=== PATIENT | female | born 1970 | race Caucasian/White ===

== ENCOUNTER → 2024-05-07 | Outpatient (CLI) | payer OTHER, SELFPAY ==
[2024-05-07 15:39] LABS: Coccid Serology, CF (UCD)* See Sep Rpt
[2024-05-07 16:12] LABS: Basophils # (Auto) 0.1 Thou/mm3 (0.0-0.2); Basophils % (Auto) 1 % (0-2.5); Eosinophils # (Auto) 0.2 Thou/mm3 (0.0-0.5); Eosinophils % (Auto) 2 % (0-10); Hemoglobin 13.3 g/dL (12.0-16.0); Immature Granulocytes % (Auto) 1 % (0-0); Immature Granulocytes Auto 0.05 Thou/mm3 (0.00-0.00); Lymphocytes # (Auto) 3.1 Thou/mm3 (1.0-4.8); Lymphocytes % (Auto) 44 % (10-50); Mean Corpuscular HGB Conc 34.1 g/dl (31.0-37.0); Mean Corpuscular Hemoglobin 30.9 pg (25.0-35.0); Mean Corpuscular Volume 91 fL (80-100); Monocytes # (Auto) 0.5 Thou/mm3 (0.0-0.8); Monocytes % (Auto) 7 % (0-12); Neutrophils # (Auto) 3.2 Thou/mm3 (1.8-7.7); Neutrophils % (Auto) 46 % (37-80); Nucleated Red Blood Cell % 0 /100 WBC (0); Platelet Count 243 Thou/mm3 (140-440); RDW Standard Deviation 41.8 fL (36.4-46.3); Red Blood Count 4.31 Miln/mm3 (4.00-5.20)
[2024-05-07 16:23] LABS: Creatinine MALB Rnd Ur 98 mg/dL (30-125); Microalbumin Creat Ratio 6 mg/gCrea (<30); Microalbumin, Random Urine 6 mg/L (0-300)
[2024-05-07 16:26] LABS: Alanine Aminotransferase 13 U/L (10-49); Albumin, Serum 4.2 gm/dL (3.5-5.0); Albumin/Globulin Ratio 1.8 (1.2-2.2); Alkaline Phosphatase 73 U/L (46-116); Anion Gap 4 (7-16); Aspartate Amino Transferase 17 U/L (0-34); BUN/Creatinine Ratio 14 Ratio (12-20); Bilirubin,Total 0.4 mg/dL (0.3-1.2); Blood Urea Nitrogen 14 mg/dL (9-23); Calcium 11.6 mg/dL (8.3-10.6); Calcium (Corrected) 11.6 mg/dL (8.5-10.1); Carbon Dioxide 26.2 mMol/L (20.0-31.0); Chloride 110 mMol/L (98-107); Free T4 (Free Thyroxine) 1.08 ng/dL (0.89-1.76); Globulin 2.4 gm/dL (2.3-3.5); Glucose 93 mg/dL (74-106); Osmolality,Calculated 279 (275-295); Potassium 3.8 mMol/L (3.4-5.1); Sodium 140 mMol/L (136-145); Thyroid Stimulating Hormone 1.55 uIU/mL (0.55-4.78); Total Protein 6.6 gm/dL (5.7-8.2); eGFR > 60 See Note
== END | disposition home or self-care (01) ==
LOC: COPL 15:06
PROVIDERS: PCP Family Medicine; Referring Provider Family Medicine; Visit Provider Family Medicine
DX: E11.9 Type 2 diabetes mellitus without complications (principal); R03.0 Elevated blood-pressure reading, without diagnosis of hypertension; B38.0 Acute pulmonary coccidioidomycosis
CPT/HCPCS: 36415; 80053; 82043; 82570; 84439; 84443; 85025; 86171

== ENCOUNTER 2024-07-14 08:20 | Day surgery (SDC) | payer OTHER, SELFPAY ==
[2024-07-13 14:17] VITALS: BMI 39.6
[2024-07-14] VITALS (13 sets, daily range): BP systolic 76–127; BP diastolic 56–97; PULSE 64–79; RESP 12–21; TEMP 36.6–36.7; O2SAT 92–98; BMI 38.9
[2024-07-14] MEDS: fentaNYL CIT INJ 50 mCg/ML AMP 2ML (ASD USE ONLY) IV (10:00)
[2024-07-14] MEDS: MEPERIDINE INJ 25 MG/ML VIAL (ASD USE ONLY) IV (10:00)
[2024-07-14] MEDS: DiphenhydrAMINE INJ 50 MG/ML VIAL 25 MG IV (10:00)
[2024-07-14] MEDS: MIDAZOLAM INJ 1 MG/ML VIAL 2 ML (ASD USE ONLY) 2 MG IV (10:06)
[2024-07-14] MEDS: ONDANSETRON INJ 2 MG/ML INJ 2 ML 4 MG IV (10:48)
--- NOTE | 2024-07-14 10:48 | SUR.PHASEII ---
PT HARD TO WEAN OFF O2, BP DROPS, NOTIFIED AND RECEIVED ORDER TO [facility] WITH NS 500ML.
[2024-07-14] MEDS: SODIUM CHLORIDE 0.9% 500 ML 500 ML 999 ML IV (10:49)
--- NOTE | 2024-07-14 10:53 | SUR.PHASEII ---
PT MORE AWAKE TALKING BUT DRIFTED BACK TO SLEEP STILL REQUIRED O2 SUPPLEMENT TO KEEP ABOVE 92%. NO ACUTE DISTRESS NOTED.
== END 2024-07-14 11:38 | disposition home or self-care (01) ==
PROVIDERS: PCP Family Medicine; Referring Provider Specialist; Visit Provider Specialist
PROC: 0DBE8ZX Excision of Large Intestine, Via Natural or Artificial Opening Endoscopic, Diagnostic (ICD-10-PCS; CPT 45380; principal; 2024-07-14 09:00)
DX: Z12.11 Encounter for screening for malignant neoplasm of colon (principal); K64.9 Unspecified hemorrhoids; K57.30 Diverticulosis of large intestine without perforation or abscess without bleeding
CPT/HCPCS: G0121; J1200; J2175; J2250; J2405; J3010; J7040

== ENCOUNTER → 2024-08-30 | Outpatient (CLI) | payer OTHER, SELFPAY ==
--- NOTE | 2024-08-30 11:40 | XR_ITS ---
Examination: Screening digital mammography, bilateral Computer aided detection 3-D breast Tomosynthesis, bilateral Date and time of exam: 08/30/2024, 11:45 AM Comparisons: 07/30/2023 Indications: Screening Technique: Nonmagnified MLO, CC views of the breasts to been obtained, reconstructed from 3-D Tomosynthesis images. R2 computer aided detection program utilized for evaluation of suspicious masses and/or abnormal calcifications. 3-D Tomosynthesis images obtained. Technologist: Findings: There are scattered areas of fibroglandular density. No evidence of abnormal masses or suspicious calcifications. Impression: BI-RADS category 1: Negative findings (within normal) Recommend 1 year follow-up mammogram
== END | disposition home or self-care (01) ==
PROVIDERS: PCP Family Medicine; Referring Provider Family Medicine; Visit Provider Family Medicine
DX: Z12.31 Encounter for screening mammogram for malignant neoplasm of breast (principal); R92.313 Mammographic fatty tissue density, bilateral breasts
CPT/HCPCS: 77063; 77067

== ENCOUNTER → 2024-10-01 | Outpatient (CLI) | payer OTHER, SELFPAY ==
--- NOTE | 2024-10-01 13:49 | XR_ITS ---
Examination: PA lateral chest 2 views TECHNIQUE: Upright PA lateral chest 2 views Exam date 9: September 23, 2024 1440 hours Comparison November 15 Indications: Shortness of breath this week FINDINGS: Normal heart size. Lungs are clear. The osseous structures are intact IMPRESSION: No active disease
[2024-10-01 15:32] LABS: Basophils # (Auto) 0.1 Thou/mm3 (0.0-0.2); Basophils % (Auto) 1 % (0-2.5); Eosinophils # (Auto) 0.2 Thou/mm3 (0.0-0.5); Eosinophils % (Auto) 2 % (0-10); Hematocrit 36.2 % (36.0-46.0); Immature Granulocytes % (Auto) 3 % (0-0); Immature Granulocytes Auto 0.29 Thou/mm3 (0.00-0.00); Lymphocytes # (Auto) 3.1 Thou/mm3 (1.0-4.8); Lymphocytes % (Auto) 35 % (10-50); Mean Corpuscular HGB Conc 33.1 g/dl (31.0-37.0); Mean Corpuscular Hemoglobin 28.6 pg (25.0-35.0); Mean Corpuscular Volume 86 fL (80-100); Monocytes # (Auto) 0.5 Thou/mm3 (0.0-0.8); Monocytes % (Auto) 6 % (0-12); Neutrophils # (Auto) 4.6 Thou/mm3 (1.8-7.7); Neutrophils % (Auto) 53 % (37-80); Nucleated Red Blood Cell % 0 /100 WBC (0); Platelet Count 381 Thou/mm3 (140-440); RDW Standard Deviation 44.4 fL (36.4-46.3); Red Blood Count 4.19 Miln/mm3 (4.00-5.20); White Blood Count 8.7 Thou/mm3 (3.6-11.0)
[2024-10-01 15:45] LABS: Glucose Estimated Average 117 mg/dL (80-131); Hemoglobin A1C 5.7 % Hgb (4.8-6.0)
[2024-10-01 15:51] LABS: Alanine Aminotransferase 35 U/L (10-49); Albumin, Serum 3.8 gm/dL (3.5-5.0); Albumin/Globulin Ratio 1.4 (1.2-2.2); Alkaline Phosphatase 108 U/L (46-116); Anion Gap 7 (7-16); Aspartate Amino Transferase 28 U/L (0-34); BUN/Creatinine Ratio 17 Ratio (12-20); Bilirubin,Total 0.3 mg/dL (0.3-1.2); Blood Urea Nitrogen 19 mg/dL (9-23); Calcium 11.2 mg/dL (8.3-10.6); Calcium (Corrected) 11.4 mg/dL (8.5-10.1); Carbon Dioxide 25.3 mMol/L (20.0-31.0); Chloride 109 mMol/L (98-107); Cholesterol 112 mg/dL (132-200); Creatinine (Component) 1.1 mg/dL (0.6-1.3); Globulin 2.7 gm/dL (2.3-3.5); Glucose 104 mg/dL (74-106); HDL Cholesterol 28 mg/dL (40-60); LDL Cholesterol,Calculated 41 mg/dL (0-130); Osmolality,Calculated 283 (275-295); Potassium 4.2 mMol/L (3.4-5.1); Sodium 141 mMol/L (136-145); Total Protein 6.5 gm/dL (5.7-8.2); Triglycerides 214 mg/dL (30-150); Uric Acid 7.3 mg/dL (3.1-7.8); eGFR 59 See Note
[2024-10-01 16:46] LABS: Collection Type, Urine Clean Catch
[2024-10-01 17:43] LABS: Creatinine MALB Rnd Ur 44 mg/dL (30-125); Microalbumin Creat Ratio 18 mg/gCrea (<30); Microalbumin, Random Urine 8 mg/L (0-300)
[2024-10-01 17:44] LABS: Bacteria,Urine Rare; Bilirubin,Urine Negative (Negative); Blood,Urine Negative (Negative); Clarity,Urine Clear (Clear/Hazy); Color,Urine Lt-Yellow (Lt Yel-Yel); Glucose, Urine Negative (Negative); Ketones,Urine Negative (Negative); Leukocyte Esterase,Urine Positive (Negative); Nitrite,Urine Negative (Negative); PH,Urine 6.5 (5.0-7.0); Protein,Urine Negative (Neg - Trace); RBC,Urine 4 /hpf (0-3); Specific Gravity,Urine 1.009 (1.001-1.035); Squamous Epithelial Cell,Urine < 1 /hpf (0-5); Urobilinogen,Urine Negative mg/dL (0.0-1.0); WBC,Urine 81 /hpf (0-5)
== END | disposition home or self-care (01) ==
PROVIDERS: PCP Family Medicine; Referring Provider Internal Medicine Infectious Disease; Visit Provider Family Medicine
DX: Z00.00 Encounter for general adult medical examination without abnormal findings (principal); B38.0 Acute pulmonary coccidioidomycosis; E11.40 Type 2 diabetes mellitus with diabetic neuropathy, unspecified; E78.2 Mixed hyperlipidemia; E83.52 Hypercalcemia
CPT/HCPCS: 36415; 71046; 80053; 80061; 81001; 82043; 82570; 83036; 84550; 85025

== ENCOUNTER 2024-10-09 20:22 | Inpatient (IN) | payer OTHER, MEDICARE, SELFPAY ==
[2024-10-09 20:31] VITALS: BP 100/62; PULSE 89; RESP 20; TEMP 36.8; O2SAT 95
--- NOTE | 2024-10-09 20:57 | PD.EDNEURO ---
Neuro Symptoms Deficit-RME/HPI General Chief Complaint: Altered Mental Status Stated Complaint: I think I might be having a Stroke Time Seen by Provider: 10/09/24 20:57 Arrival date/time: 10/09/24 20:22 RME / HPI RME / HPI Narrative: This section includes all my notes and documentations, including HPI, PE, and ED course. Mitesh Eddy MD HPI: 54-year-old female here to be evaluated with possible stroke. Mom is present. Around 7 PM, about 2 hours ago, mom and patient started noticing possible strokelike symptoms. Including slurred speech, unsteadiness, and confusion. No visual impairment. No obvious loss of power in the arms or legs. No obvious numbness or tingling. No other complaints. ROS: All negative except as documented in HPI. Physical Exam: General: Patient is lethargic. Eyes: Conjunctivae and lids clear. EOMI. PERRL. ENT: No nasal congestion. Pharynx normal. Tympanic membrane normal bilaterally. Neck: Supple. No carotid bruit. No JVD. Heart: RRR. Lungs: No respiratory distress. Good air movement. No rhonchi, wheezing, rales. Abdomen: Soft and nontender. Normal bowel sounds. No distension. No rebound or guarding. Back: No CVA tenderness. Legs: No clubbing, cyanosis, edema. Skin: Warm and dry. Neuro: Oriented X 1. Cranial Nerves II-XII grossly intact. No peripheral motor deficits. I reviewed all diagnostic test results. My interpretation of the EKG is sinus rhythm with no acute ST?T changes. My review of the head CT report is no acute findings. My review of the head/neck CTA report is no acute findings. Blood tests and urine tests remarkable for MARLYN, hypercalcemia, elevated LFT, and UTI. At this point, diagnoses include strokelike symptoms, MARLYN, hypercalcemia, UTI, and elevated LFT. Treatment here from me included IV fluid and Rocephin. Patient remained stable. Our telehealth neurologist recommended admission for further care. I discussed the case with our hospitalist. About the presentation and exam and diagnostics and treatments here. And need of further care in the hospital. Will accept the patient. Mitesh Eddy MD Related Data Home Medications ?Medication ?Instructions ?Recorded ?Confirmed baclofen 10 mg tablet 20 mg PO TID 11/16/23 10/09/24 Held on 07/14/24. Instructions: Resume on 07/15/24. docusate sodium 100 mg capsule 100 mg PO BID 11/16/23 10/09/24 famotidine 20 mg tablet 20 mg PO BID 11/16/23 10/09/24 fluticasone propionate 50 1 spray intranasal BID 11/16/23 10/09/24 mcg/actuation nasal spray,suspension linaclotide 290 mcg capsule 290 mcg PO QDAY 11/16/23 10/09/24 (Linzess) pregabalin 150 mg capsule 150 mg PO TID 11/16/23 10/09/24 fluconazole 200 mg tablet 200 mg PO BID 11/17/23 10/09/24 albuterol sulfate 90 mcg/actuation 1 inh inhalation BID PRN Wheezing 07/13/24 10/09/24 aerosol inhaler aripiprazole 15 mg tablet 15 mg PO QDAY 07/13/24 10/09/24 cetirizine 10 mg tablet 10 mg PO QDAY 07/13/24 10/09/24 desvenlafaxine succinate 100 mg 50 mg PO DAILY 07/13/24 10/09/24 tablet,extended release 24 hr finasteride 1 mg tablet 1 mg PO QDAY 07/13/24 10/09/24 montelukast 10 mg tablet 10 mg PO QDAY 07/13/24 10/09/24 rosuvastatin 20 mg tablet 20 mg PO DAILY 07/13/24 10/09/24 trazodone 150 mg tablet 300 mg PO QDAY 07/13/24 10/09/24 Held on 07/14/24. Instructions: Resume on 07/15/24. baclofen 20 mg tablet 20 mg PO TID 10/09/24 10/09/24 tirzepatide 2.5 mg/0.5 mL 2.5 mg subcut QWEEK 10/09/24 10/09/24 subcutaneous pen injector (Prema) Allergies Allergy/AdvReac Type Severity Reaction Status Date / Time erythromycin base Allergy Severe Swelling Verified 07/14/24 08:34 of Lip/Tongue/Throat Course Quality Measures none Orders Category Date Time Status Bedside Blood Glucose NOW Care 10/09/24 20:58 Active COVID-19 Screening Questionnaire NOW Care 10/10/24 00:58 Active Pelt Dropper NOW Care 10/09/24 20:58 Active Continuous Pulse Oximetry NOW Care 10/09/24 20:58 Completed Decision to Admit X1 Care 10/10/24 00:58 Active EKG (ED ONLY) *Do not use* NOW Care 10/09/24 20:58 Completed In and Out Catheter NEEDED Care 10/09/24 20:58 Active Insert IV NOW Care 10/09/24 20:58 Active MRI Screening NOW Care 10/09/24 22:15 Active NIH Stroke Scale now Care 10/09/24 20:58 Active NPO NOW Care 10/09/24 20:58 Active Nurse Swallow Screen x1 Care 10/09/24 20:58 Active Consult to Neurology / Tele-Neurology Routine Cons 10/09/24 20:[address] angio stroke protocol Stat Exams 10/09/24 20:[address] stroke protocol Stat Exams 10/09/24 20:58 Completed EKG (ED Only) Stat Exams 10/09/24 20:58 Draft MR head/brain wo con Urgent Exams 10/09/24 Ordered Alcohol, Blood Medical Stat Lab 10/09/24 22:15 Completed Ammonia Stat Lab 10/10/24 01:06 Ordered Arterial Blood Gas Stat Lab 10/09/24 22:26 Completed B-Type Natriuretic Peptide Stat Lab 10/09/24 22:15 Completed CBC Stat Lab 10/09/24 22:15 Completed Comprehensive Metabolic Panel Stat Lab 10/09/24 22:15 Completed Drug Screen,Urine Stat Lab 10/09/24 23:31 Completed Magnesium Stat Lab 10/09/24 22:15 Completed Partial Thromboplastin Time Stat Lab 10/09/24 22:54 Completed Prothrombin Time with INR Stat Lab 10/09/24 22:54 Completed TSH [Thyroid Stimulating Hormone] Stat Lab 10/09/24 22:15 Completed Troponin I Stat Lab 10/09/24 22:15 Completed Urinalysis Stat Lab 10/09/24 23:31 Completed Urine Culture Stat Lab 10/09/24 23:31 Received Clopidogrel [Plavix] Med 10/09/24 22:14 Discontinued 300 mg PO X1 ONE Dextrose 5%-0.45% Ns [D5-1/2Ns] 500 ml Med 10/09/24 22:22 Active IV 125 mls/hr Labetalol IV [Trandate IV] Med 10/09/24 20:58 Active 10 mg IV Q15M PRN Meclizine HCl [Antivert] Med 10/09/24 22:14 Discontinued 25 mg PO X1 ONE Ondansetron Inj [Zofran Inj] Med 10/09/24 20:58 Active 4 mg IV Q4HR PRN Ondansetron Inj [Zofran Inj] Med 10/09/24 22:14 Discontinued 4 mg IV X1 ONE Sodium Chloride 0.9% 1000 ml [Ns] 1,000 ml Med 10/09/24 21:00 Discontinued IV Q10H cefTRIAXone [Rocephin] 1,000 mg Med 10/10/24 01:05 Ordered SODIUM CHLORIDE 0.9% (Popper) [Ns 0.9% (P)] 50 ml IV X1 Oxygen Delivery NOW RT 10/09/24 20:58 Active Vital Signs Vital signs: Vital Signs Temperature 98.3 F 10/09/24 20:31 Pulse Rate 89 10/09/24 20:31 Respiratory Rate 20 10/09/24 20:31 Blood Pressure 100/62 10/09/24 20:31 Pulse Oximetry (%) 95 10/09/24 20:31 Oxygen Delivery Method Room Air 10/09/24 20:31 Neuro Symptoms / Deficit Patient data External records reviewed:: [facility] previous records Clinical information provided by:: patient and parent Social determinants that could affect healthcare access:: other (specify) (Chronic pain) Patient has the following chronic illnesses:: chronic pain, migraine headaches, L shoulder replacement surgery How is presenting disease/condition affected by chronic disease/condition?: exacerbated by Evaluation data The following diagnostics were reviewed and interpreted by me:: lab results, radiology exam(s) and EKG tracing(s) Lab and/or radiology exams considered but not ordered:: None Interpretation Summary: strokelike symptoms, MARLYN, hypercalcemia, UTI, and elevated LFT. Medications / Prescriptions Medications or Prescriptions considered but not ordered:: None Medication administrations:: Medication Administration History Dextrose/Sodium Chloride (D5-1/2ns) 500 mls @ 125 mls/hr IV .Q4H STA Stop: 10/10/24 02:21 Last Admin: 10/09/24 23:08 Dose: 125 mls/hr Documented By: DIONE Ceftriaxone Sodium 1,000 mg/ (Sodium Chloride) 50 mls @ 100 mls/hr IV X1 ONE Stop: 10/10/24 01:34 Labetalol HCl (Labetalol Inj 5 Mg/Ml Vial 20 Ml) 10 mg IV Q15M PRN PRN Reason: HYPER Ondansetron HCl (Ondansetron Inj 2 Mg/Ml Inj 2 Ml) 4 mg IV Q4HR PRN PRN Reason: NAUSEA OR VOMITING Stop: 11/08/24 20:57 Discontinued Medications Clopidogrel Bisulfate (Clopidogrel Bisulfate 75 Mg Tablet) 300 mg PO X1 ONE Stop: 10/09/24 22:15 Last Admin: 10/09/24 22:59 Dose: Not Given Documented By: DIONE Non-Admin Reason: NPO Sodium Chloride (Ns) 1,000 mls @ 100 mls/hr IV Q10H FLOR Stop: 11/08/24 20:59 Last Admin: 10/09/24 23:29 Dose: Not Given Documented By: DIONE Non-Admin Reason: Discontinued Meclizine HCl (Meclizine Hcl 25 Mg Tablet) 25 mg PO X1 ONE Stop: 10/09/24 22:15 Last Admin: 10/09/24 23:00 Dose: Not Given Documented By: DIONE Non-Admin Reason: NPO Ondansetron HCl (Ondansetron Inj 2 Mg/Ml Inj 2 Ml) 4 mg IV X1 ONE; Protocol Stop: 10/09/24 22:15 Last Admin: 10/09/24 23:06 Dose: 4 mg Documented By: DIONE From nd, patient received IV fluid and Rocephin Consultations Consultation(s) initiated? (list below): Yes Consultation #1 (Physician, Specialty, Details): Our telehealth neurology recommended admission for further care. Diagnosis Neuro Differential Diagnosis: convulsions, delirium, subarachnoid hemorrhage, cerebrovascular accident, multiple sclerosis and transient cerebral ischemia Most likely diagnosis given after review of the tests above:: Metabolic encephalopathy, sepsis, Admission Indicated Admission indicated?: indicated Explain why admission is indicated or not indicated:: strokelike symptoms, MARLYN, hypercalcemia, UTI, and elevated LFT. Admission Request Was there a request for admission?: Yes Admission Attestation Admission request attestation: Discussed case with Hospitalist service regarding admission. Discussed patients ED course, exam findings, labs, and radiology results. The Hospitalist [agrees] to accept the patient for admission. Disposition Plan Disposition Plan: Admit Critical Care Time Critical Care Time Critical Care Time: Yes Total Critical Care Time (min.): 36 Attestation: Due to a high probability of clinically significant, life threatening deterioration, the patient required my highest level of preparedness to intervene emergently and I personally spent this critical care time directly and personally managing the patient. This critical care time included obtaining a history; examining the patient; ordering and review of studies; arranging urgent treatment with development of a management plan; evaluation of patient's response to treatment; frequent reassessment; and discussions with family and other providers. It was exclusive of separately billable procedures and treating other patients and teaching time. Mitesh Eddy MD Discharge Plan Plan Patient Disposition: Admit Acute Care w/in Hospital Prescriptions/Referrals Prescriptions/Med Rec: No Action cetirizine 10 mg Tablet 10 mg PO QDAY trazodone 150 mg Tablet 300 mg PO QDAY montelukast 10 mg Tablet 10 mg PO QDAY albuterol sulfate 90 mcg/actuation HFA aerosol inhaler 1 inh INHALATION BID PRN (Reason: Wheezing) Patient Comments: INHALE 1 TO 2 PUFFS BY MOUTH EVERY 4 TO 6 HOURS NEEDED FOR PERSISTENT COUGH OR SHORTNESS OF BREATH OR WHEEZING finasteride 1 mg Tablet 1 mg PO QDAY aripiprazole 15 mg tablet 15 mg PO QDAY rosuvastatin 20 mg tablet 20 mg PO DAILY desvenlafaxine succinate 100 mg tablet extended release 24 hr 50 mg PO DAILY famotidine 20 mg tablet 20 mg PO BID Patient Comments: take 1 tablet by mouth twice a day baclofen 10 mg Tablet 20 mg PO TID docusate sodium 100 mg capsule 100 mg PO BID Patient Comments: take 1 capsule by mouth twice a day fluticasone propionate 50 mcg/actuation spray,suspension 1 spray INTRANASAL BID Patient Comments: USE 1 SPRAY IN EACH NOSTRIL 1-2 TIMES PER DAY FOR PERSISTENT ALLERGIES pregabalin 150 mg Capsule 150 mg PO TID Linzess 290 mcg capsule 290 mcg PO QDAY fluconazole 200 mg tablet 200 mg PO BID baclofen 20 mg tablet 20 mg PO TID Mounjaro 2.5 mg/0.5 mL pen injector 2.5 mg SUBCUT QWEEK Patient Comments: INJECT 2.5 MG UNDER THE SKIN EVERY WEEK FOR 4 WEEKS Referrals: Nba Heredia MD [Primary Care Provider] - In 1 week Problem List Clinical Impression: Stroke-like symptoms, UTI (urinary tract infection), Hypercalcemia, LFT elevation, MARLYN (acute kidney injury) Patient/Caregiver Discharge Instructions Print Language: Gabonese Stand Alone Forms: Ratna Award Info., Patient Portal Info Letter
--- NOTE | 2024-10-09 20:58 | EKG_ITS ---
[facility] Test Date: 2024-10-09 Pat Name: VITO US Department: Room: - Gender: Female Gm Video: : 1970 Requested By: Mitesh Razo Order Number: [id number] Reading MD: Mitesh Razo Measurements Intervals [place] Rate: 84 P: 48 MS: 151 QRS: 16 QRSD: 101 T: 33 QT: 324 QTc: 384 Interpretive Statements SINUS RHYTHM LOW QRS VOLTAGE IN PRECORDIAL LEADS [QRS DEFLECTION < 1.0 mV IN CHEST LEADS] Compared to ECG 11/16/2023 20:52:54 Sinus bradycardia no longer present Sinus arrhythmia no longer present Intraventricular conduction delay no longer present T-wave abnormality no longer present /store/S0/[id number]/ecg/[id number].pdf
--- NOTE | 2024-10-09 20:58 | XR_ITS ---
Examination: CTA carotids with intravenous contrast CTA brain, head with intravenous contrast. 2-D sagittal, coronal reconstructions. 3-D reconstructions. Exam date and time: October 09, 2024 2149 hours INDICATIONS: Stroke alert, onset dizziness and slurred speech CTDI: vol (mGy) 11.6 DLP: (mGycm) 444 Technique: Multiple CTA axial brain, head carotid images post intravenous contrast injection 75 cc, [id number]. 2-D sagittal, coronal reconstructions. 3-D reconstructions, 3-D post processing including vascular maximum intensity projection images. Low dose protocols were performed. One or more of the following dose reduction techniques were used; automated exposure control, adjustment of the mA and/or KV according to patient size, use of iterative reconstruction technique. Findings: No significant common carotid carotid bifurcation or internal carotid artery stenoses Codominant vertebral arteries with no critical stenoses Intracranial vertebral arteries and basilar artery posterior cerebral branches fill No large vessel occlusions juxtasellar internal carotid arteries M1 segments middle cerebral arteries middle cerebral artery trifurcation vessels anterior cerebral arteries. IMPRESSION: No significant neck arterial stenoses. No cerebral vessel arterial occlusions or thrombus
--- NOTE | 2024-10-09 20:58 | XR_ITS ---
Examination: CT brain head without contrast. 2-D sagittal coronal reconstructions Date and time of exam:October 09, 2024 at 2125 hours Comparison November 16, 2023 INDICATIONS: Stroke alert, onset focal neurologic deficit, slurred speech dizziness beginning 4:00 PM today CTDI: vol (mGy):70 DLP: (mGycm):1122 Technique: Multiple CT axial sections of the brain have been obtained, 5 mm slice thickness. Contrast has not been administered. 2-D sagittal, coronal reconstructions have been obtained Low dose protocols were performed. One or more of the following dose reduction techniques were used; automated exposure control, adjustment of the mA and/or KV according to patient size, use of iterative reconstruction technique. Findings: No significant ventricular enlargement. Intra-axial or extra-axial hemorrhage density is not seen. No mass effect or midline shift Basal cisterns are not remarkable. Fourth ventricle is midline. Cranial vault intact. Impression: Negative for acute hemorrhage, mass effect or midline shift
[2024-10-09 21:05] VITALS: PULSE 78
--- NOTE | 2024-10-09 21:49 | PC.NURSE ---
for Tele neuro case # [id number]?
[2024-10-09 22:19] VITALS: BMI 45.8
--- NOTE | 2024-10-09 22:23 | PC.NURSE ---
DR. KOROMA NOTIFIED OF FAIL NURSE SWALLOW SCREENING.
[2024-10-09 22:31] LABS: Basophils % (Auto) 0 % (0-2.5); Eosinophils # (Auto) 0.1 Thou/mm3 (0.0-0.5); Eosinophils % (Auto) 1 % (0-10); Hematocrit 30.8 % (36.0-46.0); Hemoglobin 10.2 g/dL (12.0-16.0); Immature Granulocytes % (Auto) 1 % (0-0); Immature Granulocytes Auto 0.07 Thou/mm3 (0.00-0.00); Lymphocytes % (Auto) 12 % (10-50); Mean Corpuscular HGB Conc 33.1 g/dl (31.0-37.0); Mean Corpuscular Hemoglobin 28.7 pg (25.0-35.0); Mean Corpuscular Volume 87 fL (80-100); Monocytes % (Auto) 12 % (0-12); Neutrophils # (Auto) 6.1 Thou/mm3 (1.8-7.7); Neutrophils % (Auto) 74 % (37-80); Nucleated Red Blood Cell % 0 /100 WBC (0); Platelet Count 124 Thou/mm3 (140-440); RDW Standard Deviation 48.4 fL (36.4-46.3); Red Blood Count 3.55 Miln/mm3 (4.00-5.20); White Blood Count 8.3 Thou/mm3 (3.6-11.0)
[2024-10-09 22:33] LABS: Base Excess -4 (-3-3); HCO3 22 mEq/L (20-26); Inspired Oxygen, FIO2 21 %; O2 Saturation 93 % (91-98); PCO2 41 mmHg (32.0-48.0); PO2 64 mmHg (83-108); pH, Arterial 7.34 (7.35-7.45)
[2024-10-09 22:34] LABS: Allen Test Performed/OK; Puncture Site Right Radial
--- NOTE | 2024-10-09 22:35 | PD.TNEURO ---
Tele Neuro Consultation Consultation Date 10/09/24 Most Recent Vital Signs Last Vital Signs Temp 98.3 F 10/09/24 20:31 Pulse 89 10/09/24 20:31 Resp 20 10/09/24 20:31 BP 100/62 10/09/24 20:31 Pulse Ox 95 10/09/24 20:31 O2 Del Method Room Air 10/09/24 20:31 Consultation Narrative [facility] Tele[facility]rology Consult [facility] Patient Name:???Chloe Hunt Date of :???1970 Identification Number:??? Date of Service:???10/09/2024 21:48:43 Diagnosis:?R26.81 - Unsteady gait ?G93.41 - Encephalopathy Metabolic Impression: ?54YOF with a PMHx of chronic pain, migraine headaches, L shoulder replacement surgery, presenting with subacute onset nausea with acute onset unsteadiness. Exam reassuring with unidirectional fatigable nystagmus and no evidence of torsional nystagmus or ataxia, and patient with diffuse weakness likely in the setting of a response to being on a GLP-1 medication with no blood sugar monitoring or history of diabetes. Nonetheless, cannot exclude possibility of a small posterior ischemic process, and would therefore recommend observation admission for MRI brain and metabolic workup. Our recommendations are outlined below. Recommendations: ? Stroke/Telemetry Floor ? Neuro Checks ? Bedside Swallow Eval ? DVT Prophylaxis ? IV Fluids, Normal Saline ? Head of Bed 30 Degrees ? Euglycemia and Avoid Hyperthermia (PRN Acetaminophen) ? Bolus with Clopidogrel 300 mg bolus x1 and initiate dual antiplatelet therapy with Aspirin 81 mg daily and Clopidogrel 75 mg daily ?Recommned migrain cocktai of Compazine 10, Diphenhydramine 25 for headache ?Meclizine PRN for unsteadiness/dizziness w or wo zofran ?MRI Brain wo contrast ?Infectious and metabolic workup per primary team Sign Out: ? Discussed with Emergency Department Provider Advanced Imaging: CTA Head and Neck Completed. LVO:No Patient in not a candidate for CHINYERE Metrics: Last Known Well: 10/09/2024 14:00:00 Dispatch Time: 10/09/2024 21:48:43 Arrival Time: 10/09/2024 20:22:00 Initial Response Time: 10/09/2024 21:50:21Symptoms: Dizziness, unsteadiness, recurrent falls. Initial patient interaction: 10/09/2024 21:53:08 NIHSS Assessment Completed: 10/09/2024 22:02:02Patient is not a candidate for Thrombolytic. Thrombolytic Medical Decision: 10/09/2024 22:02:03Patient was not deemed candidate for Thrombolytic because of following reasons: LKW outside 4.5 hr window. . I personally Reviewed the CT Head and it Showed no blood products or early ischemic changes Primary Provider Notified of Diagnostic Impression and Management Plan on: 10/09/2024 22:23:11 History of Present Illness:Patient is a 54 year old Female. Patient was brought by private transportation with symptoms of Dizziness, unsteadiness, recurrent falls. 54YOF with a PMHx of chronic pain, migraine headaches, L shoulder replacement surgery, presenting with subacute onset nausea with acute onset dizziness. Per patient and per mom, who is at bedside, patient was started on Mounjaro for weight loss appx 2 weeks ago, and had been complaining of intermittent nausea and feeling unwell for past several days. Today, mom took a nap and when she woke up, patient informed her that she had fallen a total of five times, with notable unsteadiness n her feet and acute worsening of her nausea. Per mom, patient had a similar eisode in the setting of a medication change in November 2023. Admits to generalized weakness and shakiness with no speech or visual changes. Past Medical History: ?Migraine Headaches ?There is no history of Hypertension ?There is no history of Diabetes Mellitus ?There is no history of Hyperlipidemia ?There is no history of Atrial Fibrillation Medications: No Anticoagulant use? No Antiplatelet use Reviewed EMR for current medications Allergies:? Reviewed Social History: Patient Is: Single Drug Use: No Family History: There is no family history of premature cerebrovascular disease pertinent to this consultation ROS : 14 Points Review of Systems was performed and was negative except mentioned in HPI. Past Surgical History: There Is No Surgical History Contributory To Today?s Visit Examination: BP(100/62),?Pulse(89), 1A: Level of Consciousness - Arouses to minor stimulation?+ 1 1B: Ask Month and Age - Both Questions Right?+ 0 1C: Blink Eyes & Squeeze Hands - Performs Both Tasks?+ 0 2: Test Horizontal Extraocular Movements - Normal?+ 0 3: Test Visual Gold - No Visual Loss?+ 0 4: Test Facial Palsy (Use Grimace if Obtunded) - Normal symmetry?+ 0 5A: Test Left Arm Motor Drift - Drift, but doesn't hit bed?+ 1 5B: Test Right Arm Motor Drift - Drift, but doesn't hit bed?+ 1 6A: Test Left Leg Motor Drift - Drift, but doesn't hit bed?+ 1 6B: Test Right Leg Motor Drift - Drift, but doesn't hit bed?+ 1 7: Test Limb Ataxia (FNF/Heel-Hunt) - No Ataxia?+ 0 8: Test Sensation - Normal; No sensory loss?+ 0 9: Test Language/Aphasia - Normal; No aphasia?+ 0 10: Test Dysarthria - Normal?+ 0 11: Test Extinction/Inattention - No abnormality?+ 0 NIHSS Score:?5 NIHSS Free Text :?+ fatigueable R nystagmus. No ataxia on FTN bilaterally Pre-Morbid Modified [place] Scale:2 Points = Slight disability; unable to carry out all previous activities, but able to look after own affairs without assistance Spoke with :?Dr Eddy This consult was conducted in real time using interactive audio and video technology. Patient was informed of the technology being used for this visit and agreed to proceed. Patient located in hospital and provider located at home/office setting. Patient is being evaluated for possible acute neurologic impairment and high probability of imminent or life-threatening deterioration. I spent total of 25 minutes providing care to this patient, including time for face to face visit via telemedicine, review of medical records, imaging studies and discussion of findings with providers, the patient and/or family. Dr Bill Leary [facility] For Inpatient follow-up with [facility] physician please call [facility] at . As we are not an outpatient service for any post hospital discharge needs please contact the hospital for assistance. If you have any questions for the [facility] physicians or need to reconsult for clinical or diagnostic changes please contact us via [facility] at .
[2024-10-09 22:36] VITALS: BP 120/83; PULSE 79; RESP 18; O2SAT 94
[2024-10-09 22:38] VITALS: PULSE 76; RESP 17; RESP 94
[2024-10-09 22:54] LABS: Alanine Aminotransferase 332 U/L (10-49); Albumin, Serum 3.4 gm/dL (3.5-5.0); Albumin/Globulin Ratio 1.3 (1.2-2.2); Alcohol, Blood Medical < 3.0 mg/dL (0-10.0); Alkaline Phosphatase 136 U/L (46-116); Anion Gap 7 (7-16); Aspartate Amino Transferase 168 U/L (0-34); BUN/Creatinine Ratio 14 Ratio (12-20); Bilirubin,Total 0.7 mg/dL (0.3-1.2); Blood Urea Nitrogen 36 mg/dL (9-23); Calcium 11.9 mg/dL (8.3-10.6); Calcium (Corrected) 12.4 mg/dL (8.5-10.1); Carbon Dioxide 20.9 mMol/L (20.0-31.0); Chloride 105 mMol/L (98-107); Creatinine (Component) 2.6 mg/dL (0.6-1.3); Estimated Creatinine Clearance 28.1 mL/min (>60); Globulin 2.6 gm/dL (2.3-3.5); Glucose 94 mg/dL (74-106); Magnesium 2.2 mg/dL (1.6-2.6); Osmolality,Calculated 274 (275-295); Potassium 4.6 mMol/L (3.4-5.1); Sodium 133 mMol/L (136-145); Thyroid Stimulating Hormone 2.37 uIU/mL (0.55-4.78); Troponin I < 0.002 ng/mL (0.0-0.045); eGFR 21 See Note
[2024-10-09] MEDS: ONDANSETRON INJ 2 MG/ML INJ 2 ML 4 MG IV (23:06)
[2024-10-09] MEDS: DEXTROSE 5%-0.45% NS 500 ML 125 ML IV (23:08)
[2024-10-09 23:18] LABS: INR 1.1 (0.9-1.3); Partial Thromboplastin Time 25.5 Seconds (22.0-36.0); Prothrombin Time 10.9 Seconds (9.0-12.2)
[2024-10-09 23:24] LABS: B-Type Natriuretic Peptide 35 pg/mL (0-100)
[2024-10-09 23:36] LABS: Collection Type, Urine Voided
[2024-10-09 23:51] LABS: Bacteria,Urine 3+; Bilirubin,Urine Negative (Negative); Blood,Urine 1+ (Negative); Clarity,Urine Turbid (Clear/Hazy); Color,Urine Drk-Yellow (Lt Yel-Yel); Glucose, Urine Negative (Negative); Ketones,Urine Negative (Negative); Leukocyte Esterase,Urine Positive (Negative); Nitrite,Urine Positive (Negative); Protein,Urine 2+ (Neg - Trace); RBC,Urine 7 /hpf (0-3); Specific Gravity,Urine 1.018 (1.001-1.035); Squamous Epithelial Cell,Urine 3 /hpf (0-5); Urobilinogen,Urine Negative mg/dL (0.0-1.0); WBC,Urine 124 /hpf (0-5)
[2024-10-09 23:57] LABS: Amphetamine/Methamp Scrn,U Negative (Negative); Barbiturate Screen,Urine Negative (Negative); Benzodiazepines Screen,Urine Negative (Negative); Benzoylecgonine Screen, Ur Negative (Negative); Fentanyl Screen,Urine Negative (Negative); Opiate Screen,Urine Negative (Negative); THC Screen,Urine Negative (Negative)
[2024-10-10] VITALS (9 sets, daily range): BP systolic 97–109; BP diastolic 55–67; PULSE 66–76; RESP 12–96; TEMP 36–36.7; O2SAT 94–99; BMI 43.1
[2024-10-10] MEDS: cefTRIAXone 1,000 MG in SODIUM CHLORIDE 0.9% (Popper) 50 ML 100 MG IV (01:32)
[2024-10-10 01:56] LABS: Ammonia < 10 uMol/L (11-32)
--- NOTE | 2024-10-10 02:02 | PD.RESHP ---
Documentation for date of: 10/10/24 [facility] History of Present Illness Chief complaint: ams, general weakness History of present illness: The patient is a 54-year-old female with previous medical history of chronic back pain, migraine, GI bleed, hyperparathyroidism, valley fever, osteoarthritis status post left shoulder replacement who was brought to the ED due to generalized weakness, nausea, vomiting that started approximately around 7 PM when her mother noticed that she was weak, his speech became slurred, she became confused. Stroke alert was called. Due to mental status, most of the history was taking through conversation with medical personnel, patient's mother and chart review. Mother denies the possibility of medication overdose. ED course: In the ED she was hemodynamically stable, afebrile, saturated well on room air. Labs were remarkable for hemoglobin of 10.2, ABG showed pH of 7.34, PO2 of 64, sodium 133, creatinine 2.6, EGFR 21, corrected calcium 12.4, AST 168, ALT 332. Ammonia levels were less than 10. TSH was 2.37. Urine analysis was positive for WBC count of 124, bacteria 3+. Urine drug screen was negative. Head and neck CTA was negative for acute stroke, fracture, bleeding, large vessel occlusions. Teleneuro was consulted, low suspicion for acute stroke, differential diagnosis could be general weakness due to GLP-1 inhibitors use, recommended admission and MRI. Her mother at the [facility], reports that symptoms started suddenly, also reports that she had similar episodes a few months ago due to increased dose of prescribed medication, does not remember the name. In the ED she received ondansetron, was started on dextrose at 125 mL/h. She was admitted for acute encephalopathy of unknown origin (possible infectious, toxic, metabolic, stroke rule out) Social history: Lives with her mom, on disability due to chronic back pain. Home medications: Docusate, famotidine, fluconazole, pregabalin, baclofen, Linzess, aripiprazole, rosuvastatin, finasteride, cetirizine, montelukast, trazodone, fluticasone nasal spray, albuterol inhaler, desvenlafaxine. Review of Systems Review of Systems ROS Unobtainable: unobtainable due to mental status Past Medical History Past Medical History NEUROLOGIC: Positive Migraine RESPIRATORY: Positive Respiratory Disorders (valley fever) MUSCULOSKELETAL: Positive Musculoskeletal Disorders ENDOCRINE: Positive Endocrine Disorders and Parathyroid Disease PSYCHO/SOCIAL: Positive Depression Exam Vital Signs Temp Pulse Resp BP Pulse Ox O2 Del Method 98.0 F 66 18 97/67 96 Room Air 10/10/24 01:16 10/10/24 01:16 10/10/24 01:16 10/10/24 01:16 10/10/24 01:16 10/10/24 01:16 Narrative Exam Physical Exam General: Sleeping in the bed, arousable to painful stimuli. AOx2 (reports the year is 2023) HEENT: Normocephalic, atraumatic, mucous membranes moist. Heart: Regular rate and rhythm, no murmurs. Lungs: Clear to auscultation with no wheezing or crackles. Abdomen: Soft, nondistended, nontender, positive bowel sounds. ?No guarding or rebound tenderness. Neurologic: Alert and oriented x2, no gross neurological deficit, and patient able to move all 4 extremities. General weakness. Extremities: 1+ edema. Skin: No rash or ecchymoses. Results: Labs 10/09/24 22:15 10/09/24 22:15 Labs: Short CBC 10/09/24 Range/Units 22:15 WBC 8.3 (3.6-11.0) Thou/mm3 Hgb 10.2 L (12.0-16.0) g/dL Hct 30.8 L (36.0-46.0) % Plt Count 124 L D (140-440) Thou/mm3 BMP 10/09/24 22:15 Sodium 133 L Potassium 4.6 Chloride 105 Carbon Dioxide 20.9 BUN 36 H Creatinine 2.6 H Glucose 94 Calcium 11.9 H Cardiac Enzymes 10/09/24 Range/Units 22:15 Troponin I < 0.002 (0.0-0.045) ng/mL Liver Function 10/09/24 Range/Units 22:15 Total Bilirubin 0.7 (0.3-1.2) mg/dL AST 168 H (0-34) U/L ALT 332 H (10-49) U/L Alkaline Phosphatase 136 H (46-116) U/L Albumin 3.4 L (3.5-5.0) gm/dL Urine 10/09/24 Range/Units 23:31 Urine Color Drk-Yellow A (Lt Yel-Yel) Urine Clarity Turbid A (Clear/Hazy) Urine pH 6.0 (5.0-7.0) Ur Specific [place] 1.018 (1.001-1.035) Urine Protein 2+ A (Neg - Trace) Urine Glucose (UA) Negative (Negative) ABG Interpretation ABG results: 10/09/24 22:26 ABG pH 7.34 L ABG pCO2 41 ABG pO2 64 L ABG HCO3 22 ABG O2 Saturation 93 ABG Base Excess -4 L Quality Measures Quality Measures none Medications Home Medications and Allergies Home Medications ?Medication ?Instructions ?Recorded ?Confirmed ?Type baclofen 10 mg tablet 20 mg PO TID 11/16/23 10/09/24 History Held on 07/14/24. Instructions: Resume on 07/15/24. docusate sodium 100 mg capsule 100 mg PO BID 11/16/23 10/09/24 History famotidine 20 mg tablet 20 mg PO BID 11/16/23 10/09/24 History fluticasone propionate 50 1 spray intranasal BID 11/16/23 10/09/24 History mcg/actuation nasal spray,suspension linaclotide 290 mcg capsule 290 mcg PO QDAY 11/16/23 10/09/24 History (Linzess) pregabalin 150 mg capsule 150 mg PO TID 11/16/23 10/09/24 History fluconazole 200 mg tablet 200 mg PO BID 11/17/23 10/09/24 History albuterol sulfate 90 mcg/actuation 1 inh inhalation BID PRN Wheezing 07/13/24 10/09/24 History aerosol inhaler cetirizine 10 mg tablet 10 mg PO QDAY 07/13/24 10/09/24 History desvenlafaxine succinate 100 mg 50 mg PO DAILY 07/13/24 10/09/24 History tablet,extended release 24 hr finasteride 1 mg tablet 1 mg PO QDAY 07/13/24 10/09/24 History montelukast 10 mg tablet 10 mg PO QDAY 07/13/24 10/09/24 History rosuvastatin 20 mg tablet 20 mg PO DAILY 07/13/24 10/09/24 History trazodone 150 mg tablet 300 mg PO QDAY 07/13/24 10/09/24 History Held on 07/14/24. Instructions: Resume on 07/15/24. baclofen 20 mg tablet 20 mg PO TID 10/09/24 10/09/24 History tirzepatide 2.5 mg/0.5 mL 2.5 mg subcut QWEEK 10/09/24 10/09/24 History subcutaneous pen injector (Prema) Allergies Allergy/AdvReac Type Severity Reaction Status Date / Time erythromycin base Allergy Severe Swelling Verified 07/14/24 08:34 of Lip/Tongue/Throat Visit Medications Acetaminophen (Acetaminophen 325 Mg Tablet) 650 mg PO Q6H PRN PRN Reason: Fever >100.3 or pain 1-3 Stop: 11/09/24 01:09 Aspirin (Aspirin Ec 81 Mg Tabec) 81 mg PO QDAY FLOR Stop: 11/09/24 08:59 Clopidogrel Bisulfate (Clopidogrel Bisulfate 75 Mg Tablet) 75 mg PO QDAY FLOR Stop: 11/09/24 08:59 Heparin Sodium (Porcine) (Heparin Sod Inj 5000 Unit/Ml Vial) 5,000 unit SC Q8HR FLOR Stop: 10/24/24 05:59 Dextrose/Sodium Chloride (D5-1/2ns) 500 mls @ 125 mls/hr IV .Q4H STA Stop: 10/10/24 02:21 Last Admin: 10/09/24 23:08 Dose: 125 mls/hr Ceftriaxone Sodium/Dextrose (Rocephin/D5w 1gm Iv Premix) 50 mls @ 100 mls/hr IV QDAY FLOR Stop: 10/17/24 08:59 Labetalol HCl (Labetalol Inj 5 Mg/Ml Vial 20 Ml) 10 mg IV Q15M PRN PRN Reason: HYPER Ondansetron HCl (Ondansetron Inj 2 Mg/Ml Inj 2 Ml) 4 mg IV Q4HR PRN PRN Reason: NAUSEA OR VOMITING Stop: 11/08/24 20:57 Sennosides (Senna Tablet) 1 tab PO QDAY PRN; Protocol PRN Reason: constipation Stop: 11/09/24 01:09 Discontinued Medications Clopidogrel Bisulfate (Clopidogrel Bisulfate 75 Mg Tablet) 300 mg PO X1 ONE Stop: 10/09/24 22:15 Last Admin: 10/09/24 22:59 Dose: Not Given Sodium Chloride (Ns) 1,000 mls @ 100 mls/hr IV Q10H FLOR Stop: 11/08/24 20:59 Last Admin: 10/09/24 23:29 Dose: Not Given Ceftriaxone Sodium 1,000 mg/ (Sodium Chloride) 50 mls @ 100 mls/hr IV X1 ONE Stop: 10/10/24 01:34 Last Admin: 10/10/24 01:32 Dose: 100 mls/hr Meclizine HCl (Meclizine Hcl 25 Mg Tablet) 25 mg PO X1 ONE Stop: 10/09/24 22:15 Last Admin: 10/09/24 23:00 Dose: Not Given Ondansetron HCl (Ondansetron Inj 2 Mg/Ml Inj 2 Ml) 4 mg IV X1 ONE; Protocol Stop: 10/09/24 22:15 Last Admin: 10/09/24 23:06 Dose: 4 mg Assessment & Plan Plan The patient is a 54-year-old female with previous medical history of chronic back pain, migraine, GI bleed, depression, valley fever, osteoarthritis status post left shoulder replacement who was brought to the ED due to generalized weakness, nausea, vomiting that started approximately around 7 PM when her mother noticed that she was weak, his speech became slurred, she became confused. #Acute encephalopathy #Stroke rule out #History of pseudotumor cerebri #History of migraines DDx: Acute stroke versus acute encephalopathy versus GLP-1 side effect Patient's mother reports that approximately at 7 PM she had suddenly started to become weak, her speech became slurred okay. In the ED a stroke alert was called, CT head and CTA of head and neck were negative for acute disease, teleneuro was consulted, low suspicion for acute stroke. 10/10/24: Patient failed swallow screen. TSH level in the normal range. A1c in September 2024 in the normal range. Plan: -Telemetry Floor -Neuro Checks q4hr - Bedside Swallow Eval - Speech therapy eval - Physical therapy eval -DVT Prophylaxis -Head of Bed 30 Degrees - Euglycemia and Avoid Hyperthermia (PRN Acetaminophen) - Bolus with Clopidogrel 300 mg bolus x1 and initiate dual antiplatelet therapy with Aspirin 81 mg daily and Clopidogrel 75 mg daily when patient is able to swallow -MRI Brain wo contrast ? Blood and utine cultures ordered ? Urine drug screen ordered - in-house neuro consult - lipid panel #UTI UA was positive for signs of UTI Plan: ? Ceftriaxone 1 g daily ? Urine cultures ordered #MARLYN Creatinine 2.6, baseline creatinine in September 2024 1.1. Could be due to chronic NSAID intake together with dehydration and infection. Plan: ? NSAIDs on hold for now ? Fluids ? Monitor daily CMP ? I's and O's ? Avoid nephrotoxic agents ? Renally dose medications - ringer's lactate at 75 ml/hr #Chronic back pain Will try to abstain from opioid medications if possible due to altered mental status. Plan: ? Pain control as needed ? Home pregabalin is on hold for now #Hypercalcemia #Hyperparathyroidism According to chart review, patient has a history of hyperparathyroidism. PTH in 2023 106.6. 10/10/24 Corrected Ca 12.4 ALP 136. Plan: - PTH ordered - ringer's lactate at 75 ml/hr - serum protein electrophoresis #Elevated transaminases AST 168, ALT 332. Most likely in the setting of acute infection, possible medication side effect. Plan: - trend CMP #History of depression Plan: ? Desvenlafaxine on hold for now #History of valley fever Patient's mother reports that she has been taking fluconazole for few months. Plan: ? Continue home fluconazole #Morbid obesity A1c in September 2024 5.8 Plan: ? Decreased appetite on hold for now Health maintenance: FEN: NPO until passes swallow screen DVT prophylaxis: heparin sc GI prophylaxis: none Dispo: telemetry CODE STATUS: Full code Plan of care discussed with attending Dr. Dalton. Ange Hernandez MD, PGY 1. Attending Provider Attestation/Addendum Patient was seen and examined in ED bed #3 with medical record specialist. Patient was brought in for altered mentation. According to her mom she has been weak and had falls at home that is what prompted her to call EMS.. The patient is on disability for back pain. She had bad shoulder as well on the left side and supposed to have a shoulder surgery. She is taking Advil. She takes Diflucan for valley fever. Her PCP is Dr. Fannie Heredia. Her mom mentioned that she noted her being sleepy and hard to arouse sometimes. Her mom said that she does not have sleep apnea. The patient awakens with vigorous stimuli but easily goes back to sleep. She was evaluated by teleneurology who recommended MRI. Initial CT scan of the brain CT angio head and neck were unremarkable. The patient has abnormal creatinine, hypercalcemia, proteinuria and cytopenia. Further workup for myeloma eg. SPEP. her mom said that she was supposed to see infectious disease doctor for her valley fever
[2024-10-10] MEDS: RINGERS LACTATED 1000 ML 1,000 ML 75 ML IV (04:00)
[2024-10-10] MEDS: HEPARIN SOD INJ 5000 UNIT/ML VIAL SC ×3 (05:02→21:12)
[2024-10-10 07:06] LABS: Alanine Aminotransferase 284 U/L (10-49); Albumin, Serum 3.3 gm/dL (3.5-5.0); Albumin/Globulin Ratio 1.3 (1.2-2.2); Alkaline Phosphatase 134 U/L (46-116); Anion Gap 8 (7-16); Aspartate Amino Transferase 132 U/L (0-34); BUN/Creatinine Ratio 12 Ratio (12-20); Bilirubin,Total 0.5 mg/dL (0.3-1.2); Blood Urea Nitrogen 34 mg/dL (9-23); Calcium 11.9 mg/dL (8.3-10.6); Calcium (Corrected) 12.5 mg/dL (8.5-10.1); Carbon Dioxide 18.3 mMol/L (20.0-31.0); Chloride 108 mMol/L (98-107); Cholesterol 80 mg/dL (132-200); Creatinine (Component) 2.8 mg/dL (0.6-1.3); Estimated Creatinine Clearance 25.1 mL/min (>60); Free T4 (Free Thyroxine) 1.13 ng/dL (0.89-1.76); Globulin 2.5 gm/dL (2.3-3.5); Glucose 95 mg/dL (74-106); HDL Cholesterol < 10 mg/dL (40-60); LDL Cholesterol,Calculated 12 mg/dL (0-130); Magnesium 2.2 mg/dL (1.6-2.6); Osmolality,Calculated 275 (275-295); Phosphorous 3.5 mg/dL (2.4-5.1); Potassium 4.2 mMol/L (3.4-5.1); Sodium 134 mMol/L (136-145); Thyroid Stimulating Hormone 2.48 uIU/mL (0.55-4.78); Total Protein 5.8 gm/dL (5.7-8.2); Triglycerides 290 mg/dL (30-150); eGFR 19 See Note
[2024-10-10 08:05] LABS: Basophils % (Auto) 1 % (0-2.5); Eosinophils # (Auto) 0.1 Thou/mm3 (0.0-0.5); Eosinophils % (Auto) 2 % (0-10); Hematocrit 32.1 % (36.0-46.0); Hemoglobin 10.4 g/dL (12.0-16.0); Immature Granulocytes % (Auto) 1 % (0-0); Immature Granulocytes Auto 0.03 Thou/mm3 (0.00-0.00); Lymphocytes # (Auto) 0.6 Thou/mm3 (1.0-4.8); Lymphocytes % (Auto) 10 % (10-50); Mean Corpuscular HGB Conc 32.4 g/dl (31.0-37.0); Mean Corpuscular Hemoglobin 28.4 pg (25.0-35.0); Mean Corpuscular Volume 88 fL (80-100); Monocytes # (Auto) 0.6 Thou/mm3 (0.0-0.8); Monocytes % (Auto) 10 % (0-12); Neutrophils # (Auto) 4.4 Thou/mm3 (1.8-7.7); Neutrophils % (Auto) 77 % (37-80); Nucleated Red Blood Cell % 0 /100 WBC (0); Platelet Count 115 Thou/mm3 (140-440); RDW Standard Deviation 49.6 fL (36.4-46.3); Red Blood Count 3.66 Miln/mm3 (4.00-5.20); White Blood Count 5.7 Thou/mm3 (3.6-11.0)
--- NOTE | 2024-10-10 09:45 | PC.NURSE ---
Malorie speech therapist and I tried to do swallow evaluation. Patient given ice chips she immediately fell asleep. Swallow evalutation not safe at this time. Patient morning medications not given to her patient will remain NPO. Will continue to monitor patient.
--- NOTE | 2024-10-10 09:53 | PCS.ST ---
UTILITY CLERK attempted swallow eval; however, pt unable to stay awake. Pt unsafe to continue with formal swallow evaluation. UTILITY CLERK will attempt again later.
[2024-10-10 10:25] LABS: Base Excess -4 (-3-3); HCO3 23 mEq/L (20-26); Inspired Oxygen, FIO2 21 %; O2 Saturation 96 % (91-98); PCO2 45 mmHg (32.0-48.0); PO2 66 mmHg (83-108); pH, Arterial 7.31 (7.35-7.45)
[2024-10-10 10:26] LABS: Allen Test Performed/OK; Puncture Site Right Radial
--- NOTE | 2024-10-10 13:07 | PC.SS ---
CARD GRADER met with pt at bedside while mom was present, pt asked for mom to answer questions. Pt lives with mom at home and mother is her medical decision maker (Ayn Hunt, .) Pt does not use any medical equipment or is diabetic/on dialysis, and pharmacy of choice is [facility] on [address]. Pt's PCP is Nba Heredia, and does not have a SNF preference.
--- NOTE | 2024-10-10 14:26 | PCS.ST ---
pt unable to stay awake for swallow evaluation. continue with repeat nurse swallow screen if pt becomes more alert. VOCATIONAL AUTO BODY INSTRUCTOR will re-attempt swallow eval tomorrow.
--- NOTE | 2024-10-10 15:25 | ESPR_ITS ---
<Statement entered by Davion Beckham MD - 10/11/24 07:29> Senior Resident Attestation: I supervised/discussed management plan with internet salesperson physician Dr. Wall, and was involved in the care of this patient. I personally saw and examined the patient and discussed the assessment and plan with the entire medicine team, including my attending. I agree with the assessment and plan as documented. Patient's care was discussed with attending physician, Dr. Beverly. Davion Beckham MD PGY-2. Documentation for date of: 10/10/24 Subjective Subjective Interval history: Patient is seen and examined at bedside Admitted overnight. Patient is drowsy, responding to only mild painful stimuli Vitals are stable. On physical examination, severe hair loss noted and appears chronically ill Labs showed WBC 5.7, Hb 10 point platelets 115, sodium 134, chloride 108, bicarb 18.3, BUN 34, creatinine 2.8, corrected calcium 12.5, AST 132, ALT 284 25-hydroxy vitamin D, 1, 25 dihydroxy vitamin D, urine electrolytes, creatinine are ordered Traylor catheter is placed to monitor the urine output. Strict I&O's is ordered Will continue maintenance fluids at 125 mL/h in view of hypercalcemia, MARLYN Exam Vital Signs Temp Pulse Resp BP Pulse Ox O2 Del Method 96.9 F 70 14 103/66 94 L Room Air 10/10/24 12:00 10/10/24 12:00 10/10/24 12:00 10/10/24 12:00 10/10/24 12:00 10/10/24 12:00 Narrative Exam General: Drowsy. Responding to mild painful stimuli HEENT: Normocephalic, atraumatic, mucous membranes moist. Heart: Regular rate and rhythm, no murmurs. Lungs: Clear to auscultation with no wheezing or crackles. Abdomen: Soft, nondistended, nontender, positive bowel sounds. ?No guarding or rebound tenderness. Neurologic: Drowsy. Responding to mild painful stimuli Extremities: No edema. Skin: No rash or ecchymoses. Severe hair loss Objective Labs 10/13/24 04:24 10/13/24 04:24 Labs: Laboratory Results - last 24 hr 10/09/24 10/09/24 10/09/24 22:15 22:26 22:54 WBC 8.3 RBC 3.55 L Hgb 10.2 L Hct 30.8 L MCV 87 MCH 28.7 MCHC 33.1 RDW Std Deviation 48.4 H Plt Count 124 L D Neut % (Auto) 74 Lymph % (Auto) 12 [place] % (Auto) 12 Eos % (Auto) 1 Baso % (Auto) 0 Neut # (Auto) 6.1 Lymph # (Auto) 1.0 [place] # (Auto) 1.0 H Eos # (Auto) 0.1 Baso # (Auto) 0.0 Immature Gran # (Auto) 0.07 H Absolute Nucleated RBC 0.00 Immature Gran % 1 H Nucleated RBC % 0 PT 10.9 INR 1.1 APTT 25.5 Puncture Site Right Radial ABG pH 7.34 L ABG pCO2 41 ABG pO2 64 L ABG HCO3 22 ABG O2 Saturation 93 ABG Base Excess -4 L FiO2 21 Sodium 133 L Potassium 4.6 Chloride 105 Carbon Dioxide 20.9 Anion Gap 7 BUN 36 H Creatinine 2.6 H Estim Creat Clear Calc 28.1 L eGFR 21 L BUN/Creatinine Ratio 14 Glucose 94 Calculated Osmolality 274 L Calcium 11.9 H Corrected Calcium 12.4 H Phosphorus Magnesium 2.2 Total Bilirubin 0.7 AST 168 H ALT 332 H Alkaline Phosphatase 136 H Ammonia Troponin I < 0.002 B-Natriuretic Peptide 35 Total Protein 6.0 Albumin 3.4 L Globulin 2.6 Albumin/Globulin Ratio 1.3 Triglycerides Cholesterol LDL Cholesterol, Calc HDL Cholesterol Cholesterol/HDL Ratio TSH 2.37 Free T4 Ur Collection Type Urine Color Urine Clarity Urine pH Ur Specific [place] Urine Protein Urine Glucose (UA) Urine Ketones Urine Blood Urine Nitrite Urine Bilirubin Urine Urobilinogen (Auto) Ur Leukocyte Esterase Urine RBC Urine WBC Ur Squamous Epith Cells Urine Bacteria Urine Opiates Screen Urine Fentanyl Screen Ur Barbiturates Screen U Amphetamin/Meth Scrn U Benzodiazepines Scrn U Cocaine Metab Screen U Marijuana (THC) Screen Ethyl Alcohol < 3.0 10/09/24 10/10/24 10/10/24 23:31 01:27 04:30 WBC 5.7 RBC 3.66 L Hgb 10.4 L Hct 32.1 L MCV 88 MCH 28.4 MCHC 32.4 RDW Std Deviation 49.6 H Plt Count 115 L Neut % (Auto) 77 Lymph % (Auto) 10 [place] % (Auto) 10 Eos % (Auto) 2 Baso % (Auto) 1 Neut # (Auto) 4.4 Lymph # (Auto) 0.6 L [place] # (Auto) 0.6 Eos # (Auto) 0.1 Baso # (Auto) 0.0 Immature Gran # (Auto) 0.03 H Absolute Nucleated RBC 0.00 Immature Gran % 1 H Nucleated RBC % 0 PT INR APTT Puncture Site ABG pH ABG pCO2 ABG pO2 ABG HCO3 ABG O2 Saturation ABG Base Excess FiO2 Sodium 134 L Potassium 4.2 Chloride 108 H Carbon Dioxide 18.3 L Anion Gap 8 BUN 34 H Creatinine 2.8 H Estim Creat Clear Calc 25.1 L eGFR 19 L BUN/Creatinine Ratio 12 Glucose 95 Calculated Osmolality 275 Calcium 11.9 H Corrected Calcium 12.5 H Phosphorus 3.5 Magnesium 2.2 Total Bilirubin 0.5 AST 132 H ALT 284 H Alkaline Phosphatase 134 H Ammonia < 10 L Troponin I B-Natriuretic Peptide Total Protein 5.8 Albumin 3.3 L Globulin 2.5 Albumin/Globulin Ratio 1.3 Triglycerides 290 H Cholesterol 80 L LDL Cholesterol, Calc 12 HDL Cholesterol < 10 L Cholesterol/HDL Ratio 8.0 H TSH 2.48 Free T4 1.13 Ur Collection Type Voided Urine Color Drk-Yellow A Urine Clarity Turbid A Urine pH 6.0 Ur Specific [place] 1.018 Urine Protein 2+ A Urine Glucose (UA) Negative Urine Ketones Negative Urine Blood 1+ A Urine Nitrite Positive Urine Bilirubin Negative Urine Urobilinogen (Auto) Negative Ur Leukocyte Esterase Positive Urine RBC 7 H Urine WBC 124 H Ur Squamous Epith Cells 3 Urine Bacteria 3+ A Urine Opiates Screen Negative Urine Fentanyl Screen Negative Ur Barbiturates Screen Negative U Amphetamin/Meth Scrn Negative U Benzodiazepines Scrn Negative U Cocaine Metab Screen Negative U Marijuana (THC) Screen Negative Ethyl Alcohol 10/10/24 10:19 WBC RBC Hgb Hct MCV MCH MCHC RDW Std Deviation Plt Count Neut % (Auto) Lymph % (Auto) [place] % (Auto) Eos % (Auto) Baso % (Auto) Neut # (Auto) Lymph # (Auto) [place] # (Auto) Eos # (Auto) Baso # (Auto) Immature Gran # (Auto) Absolute Nucleated RBC Immature Gran % Nucleated RBC % PT INR APTT Puncture Site Right Radial ABG pH 7.31 L ABG pCO2 45 ABG pO2 66 L ABG HCO3 23 ABG O2 Saturation 96 ABG Base Excess -4 L FiO2 21 Sodium Potassium Chloride Carbon Dioxide Anion Gap BUN Creatinine Estim Creat Clear Calc eGFR BUN/Creatinine Ratio Glucose Calculated Osmolality Calcium Corrected Calcium Phosphorus Magnesium Total Bilirubin AST ALT Alkaline Phosphatase Ammonia Troponin I B-Natriuretic Peptide Total Protein Albumin Globulin Albumin/Globulin Ratio Triglycerides Cholesterol LDL Cholesterol, Calc HDL Cholesterol Cholesterol/HDL Ratio TSH Free T4 Ur Collection Type Urine Color Urine Clarity Urine pH Ur Specific [place] Urine Protein Urine Glucose (UA) Urine Ketones Urine Blood Urine Nitrite Urine Bilirubin Urine Urobilinogen (Auto) Ur Leukocyte Esterase Urine RBC Urine WBC Ur Squamous Epith Cells Urine Bacteria Urine Opiates Screen Urine Fentanyl Screen Ur Barbiturates Screen U Amphetamin/Meth Scrn U Benzodiazepines Scrn U Cocaine Metab Screen U Marijuana (THC) Screen Ethyl Alcohol ABG Interpretation ABG results: 10/09/24 10/10/24 22:26 10:19 ABG pH 7.34 L 7.31 L ABG pCO2 41 45 ABG pO2 64 L 66 L ABG HCO3 22 23 ABG O2 Saturation 93 96 ABG Base Excess -4 L -4 L Quality Measures Quality Measures none Assessment & Plan Assessment Current Active Medications: Generic Name Dose Route Start Last Admin Trade Name Freq PRN Reason Stop Dose Admin Acetaminophen 650 mg 10/10/24 01:10 Acetaminophen 325 Mg Tablet PO 11/09/24 01:09 Q6H PRN Fever >100.3 or pain 1-3 Aspirin 81 mg 10/10/24 09:00 10/10/24 09:45 Aspirin Ec 81 Mg Tabec PO 11/09/24 08:59 Not Given QDAY FLOR Cinacalcet 30 mg 10/10/24 13:00 10/10/24 13:31 Cinacalcet Hcl 30 Mg Tablet (Non-Form) PO 11/09/24 12:59 Not Given BID FLOR Clopidogrel Bisulfate 75 mg 10/10/24 09:00 10/10/24 09:45 Clopidogrel Bisulfate 75 Mg Tablet PO 11/09/24 08:59 Not Given QDAY FLOR Dextrose 50 ml 10/10/24 14:11 Dextrose 50%-Water Inj 50 Ml Syringe IV 11/09/24 14:10 X1 PRN Blood Sugar - Low Heparin Sodium (Porcine) 5,000 unit 10/10/24 06:00 10/10/24 13:30 Heparin Sod Inj 5000 Unit/Ml Vial SC 10/24/24 05:59 5,000 unit Q8HR FLOR Administration Ceftriaxone Sodium/Dextrose 1 gm in 50 mls @ 100 mls/hr 10/10/24 21:00 Rocephin/D5w 1gm Iv Premix IV 10/17/24 20:59 HS FLOR Lactated Ringer's 1,000 mls @ 125 mls/hr 10/10/24 08:55 Lactated Ringers IV 11/09/24 08:54 .Q8H FLOR Labetalol HCl 10 mg 10/09/24 20:58 Labetalol Inj 5 Mg/Ml Vial 20 Ml IV Q15M PRN HYPER Ondansetron HCl 4 mg 10/09/24 20:58 Ondansetron Inj 2 Mg/Ml Inj 2 Ml IV 11/08/24 20:57 Q4HR PRN NAUSEA OR VOMITING Pharmacy Consult 1 each 10/10/24 02:58 Pharmacy Renal Dose Adjustment 1 Ea XX 11/09/24 02:57 PRN PRN CONSULT Sennosides 1 tab 10/10/24 01:10 Senna Tablet PO 11/09/24 01:09 QDAY PRN constipation Protocol Plan The patient is a 54-year-old female with previous medical history of chronic back pain, migraine, GI bleed, depression, valley fever, osteoarthritis status post left shoulder replacement who was brought to the ED due to generalized weakness, nausea, vomiting that started approximately around 7 PM when her mother noticed that she was weak, his speech became slurred, she became confused. #Acute encephalopathy #Likely 2/2 UTI vs GLP 1 #Stroke rule out #History of pseudotumor cerebri #History of migraines Patient's mother reports that approximately at 7 PM she had suddenly started to become weak, her speech became slurred okay. In the ED a stroke alert was called, CT head and CTA of head and neck were negative for acute disease, teleneuro was consulted, low suspicion for acute stroke. 10/10/24: Patient failed swallow screen. TSH level in the normal range. A1c in September 2024 in the normal range. Plan: -Telemetry Floor -Neuro Checks q4hr - Bedside Swallow Eval - Speech therapy eval - Physical therapy eval - DVT Prophylaxis - Head of Bed 30 Degrees - Euglycemia and Avoid Hyperthermia (PRN Acetaminophen) - Bolus with Clopidogrel 300 mg bolus x1 and initiate dual antiplatelet therapy with Aspirin 81 mg daily and Clopidogrel 75 mg daily when patient is able to swallow - MRI Brain wo contrast ? Blood and utine cultures ordered #UTI UA was positive for signs of UTI Plan: ? Ceftriaxone 1 g daily ? Urine cultures ordered #MARLYN -prerenal versus ATN Creatinine 2.6, baseline creatinine in September 2024 1.1. Patient had history of decreased oral intake since 2 weeks after starting Mounjaro likely due to dehydration with superimposed UTI Plan: -Started on LR at 125 mL/h -Urine electrolytes and urine creatinine were ordered -Renal ultrasound is ordered -Avoid nephrotoxic medications and renally dose the medications #Chronic back pain Will try to abstain from opioid medications if possible due to altered mental status. Plan: ? Pain control as needed ? Home pregabalin is on hold for now #Hypercalcemia #Hyperparathyroidism According to chart review, patient has a history of hyperparathyroidism. PTH in 2023 106.6. 10/10/24 Corrected Ca 12.4 ALP 136. Plan: - PTH ordered - ringer's lactate at 125 mL/h - Cinacalcet 30mg p.o. BID - serum protein electrophoresis -Patient may need parathyroidectomy on the outpatient basis in view of severe hypercalcemia and risk of osteoporosis -25-hydroxy vitamin D and 1, 25-hydroxy vitamin D are ordered to rule out secondary causes of hypothyroidism #Elevated transaminases AST 168, ALT 332. Most likely in the setting of acute infection, possible medication side effect. Plan: - trend CMP #History of depression Plan: ? Desvenlafaxine on hold for now #History of valley fever Patient's mother reports that she has been taking fluconazole for few months. Plan: ? Continue home fluconazole #Morbid obesity A1c in September 2024 5.8 Plan: ? Decreased appetite on hold for now Health maintenance: FEN: NPO until passes swallow screen DVT prophylaxis: heparin sc GI prophylaxis: none Dispo: telemetry CODE STATUS: Full code Patient plan of care was discussed with the attending physician, Dr. Beverly and senior resident Dr. Bhavani Wall, PGY1 Attending Provider Attestation/Addendum Patient seen and examined at bedside with resident. I have reviewed all relevant imaging, labs, medications and agree with assessment and plan as dictated above. Luis Antonio Beverly MD
[2024-10-10 15:55] LABS: Chloride,Urine Random 29.5 mMol/L (55.0-125.0); Creatinine,Random Urine 48 mg/dL (30-125); Potassium,Urine Random 11 mMol/L (12-62); Sodium,Urine Random 31.7 mMol/L (20.0-110.0)
[2024-10-10 16:19] LABS: Amphetamine/Methamp Scrn,U Negative (Negative); Barbiturate Screen,Urine Negative (Negative); Benzodiazepines Screen,Urine Negative (Negative); Benzoylecgonine Screen, Ur Negative (Negative); Fentanyl Screen,Urine Negative (Negative); Opiate Screen,Urine Negative (Negative); THC Screen,Urine Negative (Negative)
--- NOTE | 2024-10-10 17:32 | PC.NURSE ---
Notified Dr. Beckham gram negative rods in .
[2024-10-10] MEDS: cefTRIAXone/D5w 1gm IV premix 1 GM/50 ML BAG IV (20:19)
[2024-10-10] MEDS: RINGERS LACTATED 1000 ML 1,000 ML 125 ML IV (20:19)
[2024-10-10 20:51] LABS: Parathyroid Hormone Intact 82.7 pg/ml (18.5-88.0)
[2024-10-10 20:53] LABS: Vitamin D 25 Hydroxy Total 46.8 ng/mL (7.3-40.2)
--- NOTE | 2024-10-10 23:41 | VVPN_ITS ---
Telemedicine visit statement This visit was conducted with the use of interactive audio and video telecommunications system that permits real time communication between the patient and the provider. Patient's verbal consent for virtual visit was obtained on 10/10/24 at 2341. Documentation for date of: 10/10/24 Subjective Subjective Interval history: Patient is in telemetry. Continues to be lethargic, complains of chronic low back pain when arousable and moved. Virtual exam Vital Signs Temp Pulse Resp BP Pulse Ox O2 Del Method FiO2 98.0 F 68 16 97/59 L 98 Room Air 30 10/10/24 20:00 10/10/24 23:27 10/10/24 23:27 10/10/24 20:00 10/10/24 23:27 10/10/24 20:00 10/10/24 21:59 Objective Labs 10/11/24 05:14 10/11/24 05:14 Labs: Laboratory Results - last 24 hr 10/09/24 10/10/24 10/10/24 23:31 01:27 04:30 WBC 5.7 RBC 3.66 L Hgb 10.4 L Hct 32.1 L MCV 88 MCH 28.4 MCHC 32.4 RDW Std Deviation 49.6 H Plt Count 115 L Neut % (Auto) 77 Lymph % (Auto) 10 [place] % (Auto) 10 Eos % (Auto) 2 Baso % (Auto) 1 Neut # (Auto) 4.4 Lymph # (Auto) 0.6 L [place] # (Auto) 0.6 Eos # (Auto) 0.1 Baso # (Auto) 0.0 Immature Gran # (Auto) 0.03 H Absolute Nucleated RBC 0.00 Immature Gran % 1 H Nucleated RBC % 0 Puncture Site ABG pH ABG pCO2 ABG pO2 ABG HCO3 ABG O2 Saturation ABG Base Excess FiO2 Sodium 134 L Potassium 4.2 Chloride 108 H Carbon Dioxide 18.3 L Anion Gap 8 BUN 34 H Creatinine 2.8 H Estim Creat Clear Calc 25.1 L eGFR 19 L BUN/Creatinine Ratio 12 Glucose 95 Calculated Osmolality 275 Calcium 11.9 H Corrected Calcium 12.5 H Phosphorus 3.5 Magnesium 2.2 Total Bilirubin 0.5 AST 132 H ALT 284 H Alkaline Phosphatase 134 H Ammonia < 10 L Total Protein 5.8 Albumin 3.3 L Globulin 2.5 Albumin/Globulin Ratio 1.3 Triglycerides 290 H Cholesterol 80 L LDL Cholesterol, Calc 12 HDL Cholesterol < 10 L Cholesterol/HDL Ratio 8.0 H 25-OH Vitamin D Total 46.8 H TSH 2.48 Free T4 1.13 PTH Intact 82.7 Ur Collection Type Voided Urine Color Drk-Yellow A Urine Clarity Turbid A Urine pH 6.0 Ur Specific [place] 1.018 Urine Protein 2+ A Urine Glucose (UA) Negative Urine Ketones Negative Urine Blood 1+ A Urine Nitrite Positive Urine Bilirubin Negative Urine Urobilinogen (Auto) Negative Ur Leukocyte Esterase Positive Urine RBC 7 H Urine WBC 124 H Ur Squamous Epith Cells 3 Urine Bacteria 3+ A Ur Random Creatinine Ur Random Sodium Ur Random Potassium Ur Random Chloride Urine Opiates Screen Negative Urine Fentanyl Screen Negative Ur Barbiturates Screen Negative U Amphetamin/Meth Scrn Negative U Benzodiazepines Scrn Negative U Cocaine Metab Screen Negative U Marijuana (THC) Screen Negative 10/10/24 10/10/24 10:19 15:23 WBC RBC Hgb Hct MCV MCH MCHC RDW Std Deviation Plt Count Neut % (Auto) Lymph % (Auto) [place] % (Auto) Eos % (Auto) Baso % (Auto) Neut # (Auto) Lymph # (Auto) [place] # (Auto) Eos # (Auto) Baso # (Auto) Immature Gran # (Auto) Absolute Nucleated RBC Immature Gran % Nucleated RBC % Puncture Site Right Radial ABG pH 7.31 L ABG pCO2 45 ABG pO2 66 L ABG HCO3 23 ABG O2 Saturation 96 ABG Base Excess -4 L FiO2 21 Sodium Potassium Chloride Carbon Dioxide Anion Gap BUN Creatinine Estim Creat Clear Calc eGFR BUN/Creatinine Ratio Glucose Calculated Osmolality Calcium Corrected Calcium Phosphorus Magnesium Total Bilirubin AST ALT Alkaline Phosphatase Ammonia Total Protein Albumin Globulin Albumin/Globulin Ratio Triglycerides Cholesterol LDL Cholesterol, Calc HDL Cholesterol Cholesterol/HDL Ratio 25-OH Vitamin D Total TSH Free T4 PTH Intact Ur Collection Type Urine Color Urine Clarity Urine pH Ur Specific [place] Urine Protein Urine Glucose (UA) Urine Ketones Urine Blood Urine Nitrite Urine Bilirubin Urine Urobilinogen (Auto) Ur Leukocyte Esterase Urine RBC Urine WBC Ur Squamous Epith Cells Urine Bacteria Ur Random Creatinine 48 Ur Random Sodium 31.7 Ur Random Potassium 11 L Ur Random Chloride 29.5 L Urine Opiates Screen Negative Urine Fentanyl Screen Negative Ur Barbiturates Screen Negative U Amphetamin/Meth Scrn Negative U Benzodiazepines Scrn Negative U Cocaine Metab Screen Negative U Marijuana (THC) Screen Negative ABG Interpretation ABG results: 10/09/24 10/10/24 22:26 10:19 ABG pH 7.34 L 7.31 L ABG pCO2 41 45 ABG pO2 64 L 66 L ABG HCO3 22 23 ABG O2 Saturation 93 96 ABG Base Excess -4 L -4 L Assessment & Plan Problem List (1) Stroke-like symptoms: Status: Acute Assessment and plan: Follow-up with the brain MRI Consider doing EEG and LP if needed if the mental status does not improve in 48 hours (2) MARLYN (acute kidney injury): Status: Acute Assessment and plan: Continue to monitor kidney function Acute on chronic kidney insufficiency, likely secondary to hyperparathyroidism/hypercalcemia Continue with management per primary team with Cinacalcet Rest of the labs are pending (3) LFT elevation: Status: Acute Assessment and plan: Likely opiate induced/concurrent infection Agreed with holding opiates (4) Hypercalcemia: Status: Acute Assessment and plan: Workup for secondary hyperparathyroidism and other causes pending. (5) UTI (urinary tract infection): Status: Acute Assessment and plan: On ceftriaxone, follow-up with urine culture and sensitivity (6) Pseudotumor cerebri syndrome: Status: Chronic Assessment and plan: Could not tolerate Diamox. Trying to lose weight with the nonmedicinal measures for now as she could not tolerate GLP-1 inhibitor recently
[2024-10-11] VITALS (7 sets, daily range): BP systolic 95–127; BP diastolic 65–79; PULSE 70–87; RESP 14–95; TEMP 36.1–36.3; O2SAT 94–98; BMI 42.9; BMI 13.0
--- NOTE | 2024-10-11 | XR_ITS ---
Examination: MRI brain without intravenous contrast. Date and time of exam: October 11, 2024 10:40 AM Indications: Stroke alert October 09, 2024 slurred speech confusion focal neurologic deficit Technique: Multiple axial and sagittal images of the brain obtained. Siemens high-resolution 1.5 Cheryl short bore scanners utilized. Sagittal sections, T1-weighted, TR 500, TE 14, are performed. Axial sections proton-density and T2-weighted have been obtained. Inversion recovery axial images, TR 9, 260, TE 111, TI 2500. Diffusion weighted images, axial sections, TR 4800, TE 128, B value 1000 Axial sections, ADC map, TR 4800, TE 128 Findings: Enlargement of the sella turcica is not present. The optic chiasm and infundibular are not remarkable. Prepontine and interpeduncular cisterns are not enlarged. There is no localized enlargement of the medulla or chelle. Fourth ventricle and cerebellar tonsils appear normal in position. No subacute area of hemorrhage density is seen. Mass in the cerebellopontine angle region is not evident. Globes symmetrical. Orbital musculature including medial lateral rectus muscles do not exhibit abnormality. Diffusion-weighted images demonstrate no focus of restricted diffusion. Increased white matter signal evident, scattered punctate foci increased signal in the frontal white matter Mass effect upon the ventricular system is not identified. Impression: Negative for acute hemorrhage mass effect or midline shift No acute infarct Scattered punctate foci increased signal in the frontal white matter, demyelinating disease pattern
--- NOTE | 2024-10-11 | XR_ITS ---
Examination: Retroperitoneal ultrasound, complete Technique: Multiple high resolution grayscale images of the retroperitoneum obtained, including kidneys and bladder. Exam date and time:October 11, 2024 1214 hours INDICATIONS: Bilateral flank pain beginning 2 days ago. FINDINGS: Right kidney 10.7 cm renal cortex 1.1 cm Left kidney 11.4 cm renal cortex 1.5 cm Mild bilateral linear parenchymal scar formation No hydronephrosis Bladder contracted around a Traylor catheter IMPRESSION: Bilateral renal cortical thinning Mild bilateral renal parenchymal scar formation
--- NOTE | 2024-10-11 02:13 | PRELIM_ITS ---
Renal/Retroperitoneal ultrasound with Doppler. October 11, 2024 0014 hours Clinical history: MARLYN Technique: Duplex scan of the bilateral renal arterial and venous tree was performed utilizing 2D grayscale imaging, Doppler spectral analysis and color flow. Comparison: None available at the time of this report. Findings: Right: The right kidney measures 10.7 cm and is unremarkable. There is no hydronephrosis or renal calculus. The corticomedullary differentiation is maintained. Left: The left kidney measures 11.4 cm and is unremarkable. There is no hydronephrosis or renal calculus. The corticomedullary differentiation is maintained. Limited evaluation of the urinary bladder. No abnormalities detected by Doppler Impression: Unremarkable renal ultrasound examination. Report Electronically Signed By: Ishaan Rudd 10/11/2024 2:12:58 AM [EST]
--- NOTE | 2024-10-11 03:55 | PC.RT ---
MD Koo made aware pt refusing bipap, pt stated she's had sleep study done and negative for SHERI. stated to just keep orders as is.
[2024-10-11] MEDS: RINGERS LACTATED 1000 ML 1,000 ML 125 ML IV ×2 (05:28→14:45)
[2024-10-11] MEDS: HEPARIN SOD INJ 5000 UNIT/ML VIAL SC ×3 (05:29→21:06)
[2024-10-11 05:50] LABS: Basophils % (Auto) 1 % (0-2.5); Eosinophils # (Auto) 0.1 Thou/mm3 (0.0-0.5); Eosinophils % (Auto) 3 % (0-10); Hematocrit 32.4 % (36.0-46.0); Hemoglobin 10.2 g/dL (12.0-16.0); Immature Granulocytes % (Auto) 1 % (0-0); Immature Granulocytes Auto 0.04 Thou/mm3 (0.00-0.00); Lymphocytes # (Auto) 0.7 Thou/mm3 (1.0-4.8); Lymphocytes % (Auto) 18 % (10-50); Mean Corpuscular HGB Conc 31.5 g/dl (31.0-37.0); Mean Corpuscular Hemoglobin 28.3 pg (25.0-35.0); Mean Corpuscular Volume 90 fL (80-100); Monocytes # (Auto) 0.4 Thou/mm3 (0.0-0.8); Monocytes % (Auto) 12 % (0-12); Neutrophils # (Auto) 2.5 Thou/mm3 (1.8-7.7); Neutrophils % (Auto) 66 % (37-80); Nucleated Red Blood Cell % 0 /100 WBC (0); Platelet Count 157 Thou/mm3 (140-440); RDW Standard Deviation 51.2 fL (36.4-46.3); White Blood Count 3.8 Thou/mm3 (3.6-11.0)
[2024-10-11 06:12] LABS: Alanine Aminotransferase 218 U/L (10-49); Albumin, Serum 3.2 gm/dL (3.5-5.0); Albumin/Globulin Ratio 1.2 (1.2-2.2); Alkaline Phosphatase 155 U/L (46-116); Anion Gap 8 (7-16); Aspartate Amino Transferase 96 U/L (0-34); BUN/Creatinine Ratio 15 Ratio (12-20); Bilirubin,Total 0.5 mg/dL (0.3-1.2); Blood Urea Nitrogen 35 mg/dL (9-23); Calcium 12.4 mg/dL (8.3-10.6); Carbon Dioxide 22.6 mMol/L (20.0-31.0); Chloride 111 mMol/L (98-107); Creatinine (Component) 2.4 mg/dL (0.6-1.3); Estimated Creatinine Clearance 29.3 mL/min (>60); Globulin 2.7 gm/dL (2.3-3.5); Glucose 97 mg/dL (74-106); Osmolality,Calculated 291 (275-295); Potassium 4.3 mMol/L (3.4-5.1); Sodium 142 mMol/L (136-145); Total Protein 5.9 gm/dL (5.7-8.2); eGFR 23 See Note
[2024-10-11] MEDS: CINACALCET HCL 30 MG TABLET (NON-FORM) PO ×2 (09:13→21:06)
[2024-10-11] MEDS: CLOPIDOGREL BISULFATE 75 MG TABLET PO (09:13)
[2024-10-11] MEDS: ASPIRIN EC 81 MG TABEC PO (09:13)
--- NOTE | 2024-10-11 09:48 | PC.SS ---
SS follow up note; Patient is on IV Fluids. calcium being monitored. Patient is pending a CT-Scan and PT evaluation. SS followed up on the discharge plan with patient and she reports she would like to discharge home, however will wait for PT recommendations, Discharge plan to be discussed with patient after PT eval.
--- NOTE | 2024-10-11 10:10 | CHAP ---
Patient was visited by the Spiritual Care Volunteer who prayed for them outside door.. (Volunteer was in the hospital from 09:00-10:10).
--- NOTE | 2024-10-11 10:27 | XR_ITS ---
Examination: Lumbar spine 2 views TECHNIQUE: AP lateral lumbar spine 2 views Exam date time: October 11, 2024 1158 hours INDICATIONS: Low back pain months. FINDINGS: Grade 1 spondylolisthesis L5 on S1 Advanced degenerative disc disease at the L5-S1 level No lumbar fracture IMPRESSION: Grade 1 spondylolisthesis L5 on S1 Advanced degenerative disc disease L5-S1
--- NOTE | 2024-10-11 11:52 | XR_ITS ---
Examination: Thoracic spine 3 views TECHNIQUE: AP lateral, lateral upper dorsal spine 3 views Standing time: October 11, 2024, 1153 hours INDICATIONS: Upper back pain months FINDINGS: Thoracic dextroscoliosis 10 degrees Thoracolumbar levoscoliosis 10 degrees No acute thoracic fracture [id number] diffuse thoracic degenerative disc disease IMPRESSION: Mild to moderate diffuse thoracic degenerative disc disease
[2024-10-11 11:57] LABS: Misc Send Out* See Sep Rpt
[2024-10-11] MEDS: SODIUM CHLORIDE 0.9% 1000 ML 1,000 ML 125 ML IV (12:15)
[2024-10-11 14:46] LABS: Cocci Serology, IgM Positive (Negative)
[2024-10-11 14:47] LABS: Cocid Sro, CF/ID (UCD) NO CHG* See Sep Rpt
--- NOTE | 2024-10-11 16:24 | PC.SS ---
SS follow up note; SS was contacted by Marian from PT, patient is open to SNF. SS Submitted SNF inquiry through [employer].
--- NOTE | 2024-10-11 16:52 | ESPR_ITS ---
<Statement entered by Davion Beckham MD - 10/13/24 07:35> Senior Resident Attestation: I supervised/discussed management plan with internet researcher physician Dr. Wall, and was involved in the care of this patient. I personally saw and examined the patient and discussed the assessment and plan with the entire medicine team, including my attending. I agree with the assessment and plan as documented. Patient's care was discussed with attending physician, Dr. Layne. Davion Beckham MD PGY-2. Documentation for date of: 10/11/24 Subjective Subjective Interval history: Patient is seen and examined at bedside. No acute overnight events. Patient appears more awake today and is able to respond to questions and answering appropriately Patient stated that she is using fluconazole for cocci since November 23 and her last visit is in September 2024 with her PCP and he recommended to continue the fluconazole Patient denies any previous history of hypercalcemia and not taking any extra vitamin D supplementation Patient reported that she is not bedbound and pretty much able to do her routine daily activities Cocci IgM antibody showed came back positive again, will continue fluconazole now and will consult ID if needed Labs done today showed improving renal functions, downtrending transaminase levels Will continue IV fluids for now and will resume fluconazole in view of positive IgM Exam Vital Signs Temp Pulse Resp BP Pulse Ox O2 Del Method FiO2 97.3 F 76 16 100/67 96 Room Air 30 10/11/24 12:00 10/11/24 12:00 10/11/24 12:00 10/11/24 12:00 10/11/24 12:00 10/11/24 12:00 10/10/24 21:59 Narrative Exam General: Awake, obese, appears chronically ill HEENT: Normocephalic, atraumatic, mucous membranes moist. Heart: Regular rate and rhythm, no murmurs. Lungs: Clear to auscultation with no wheezing or crackles. Abdomen: Soft, nondistended, nontender, positive bowel sounds. ?No guarding or rebound tenderness. Neurologic: No focal neurological deficits noted Extremities: No edema. Severe osteoarthritis in left shoulder with limitation of movements Skin: No rash or ecchymoses. Severe hair loss Objective Labs 10/12/24 05:19 10/12/24 05:19 Labs: Laboratory Results - last 24 hr 10/10/24 10/11/24 10/11/24 04:30 05:14 11:37 WBC 3.8 RBC 3.60 L Hgb 10.2 L Hct 32.4 L MCV 90 MCH 28.3 MCHC 31.5 RDW Std Deviation 51.2 H Plt Count 157 D Neut % (Auto) 66 Lymph % (Auto) 18 [place] % (Auto) 12 Eos % (Auto) 3 Baso % (Auto) 1 Neut # (Auto) 2.5 Lymph # (Auto) 0.7 L [place] # (Auto) 0.4 Eos # (Auto) 0.1 Baso # (Auto) 0.0 Immature Gran # (Auto) 0.04 H Absolute Nucleated RBC 0.00 Immature Gran % 1 H Nucleated RBC % 0 Sodium 142 Potassium 4.3 Chloride 111 H Carbon Dioxide 22.6 Anion Gap 8 BUN 35 H Creatinine 2.4 H Estim Creat Clear Calc 29.3 L eGFR 23 L BUN/Creatinine Ratio 15 Glucose 97 Calculated Osmolality 291 Calcium 12.4 H Corrected Calcium 13.0 H Total Bilirubin 0.5 AST 96 H ALT 218 H Alkaline Phosphatase 155 H D Total Protein 5.9 Albumin 3.2 L Globulin 2.7 Albumin/Globulin Ratio 1.2 25-OH Vitamin D Total 46.8 H PTH Intact 82.7 Coccidioides IgM Ab Positive A ABG Interpretation ABG results: 10/09/24 10/10/24 22:26 10:19 ABG pH 7.34 L 7.31 L ABG pCO2 41 45 ABG pO2 64 L 66 L ABG HCO3 22 23 ABG O2 Saturation 93 96 ABG Base Excess -4 L -4 L Quality Measures Quality Measures none Assessment & Plan Assessment Current Active Medications: Generic Name Dose Route Start Last Admin Trade Name Freq PRN Reason Stop Dose Admin Acetaminophen 650 mg 10/10/24 01:10 Acetaminophen 325 Mg Tablet PO 11/09/24 01:09 Q6H PRN Fever >100.3 or pain 1-3 Aspirin 81 mg 10/10/24 09:00 10/11/24 09:13 Aspirin Ec 81 Mg Tabec PO 11/09/24 08:59 81 mg QDAY FLOR Administration Cinacalcet 30 mg 10/10/24 13:00 10/11/24 09:13 Cinacalcet Hcl 30 Mg Tablet (Non-Form) PO 11/09/24 12:59 30 mg BID FLOR Administration Clopidogrel Bisulfate 75 mg 10/10/24 09:00 10/11/24 09:13 Clopidogrel Bisulfate 75 Mg Tablet PO 11/09/24 08:59 75 mg QDAY FLOR Administration Dextrose 50 ml 10/10/24 14:11 Dextrose 50%-Water Inj 50 Ml Syringe IV 11/09/24 14:10 X1 PRN Blood Sugar - Low Fluconazole 200 mg 10/10/24 21:00 10/10/24 20:20 Fluconazole 100 Mg Tablet PO 10/17/24 20:59 Not Given BID FLOR Heparin Sodium (Porcine) 5,000 unit 10/10/24 06:00 10/11/24 14:46 Heparin Sod Inj 5000 Unit/Ml Vial SC 10/24/24 05:59 5,000 unit Q8HR FLOR Administration Ceftriaxone Sodium/Dextrose 1 gm in 50 mls @ 100 mls/hr 10/10/24 21:00 10/10/24 22:56 Rocephin/D5w 1gm Iv Premix IV 10/17/24 20:59 Infused HS FLOR Infusion Lactated Ringer's 1,000 mls @ 125 mls/hr 10/10/24 08:55 10/11/24 14:45 Lactated Ringers IV 11/09/24 08:54 125 mls/hr .Q8H FLOR Administration Sodium Chloride 1,000 mls @ 125 mls/hr 10/11/24 10:24 10/11/24 12:15 Ns IV 10/11/24 18:23 125 mls/hr .Q8H ONE Administration Labetalol HCl 10 mg 10/09/24 20:58 Labetalol Inj 5 Mg/Ml Vial 20 Ml IV Q15M PRN HYPER Home Medication- 50 mg 10/11/24 09:00 10/11/24 12:04 Please Speak With PO 11/10/24 08:59 Not Given Patient Caregiver To DAILY FLOR Have Rx Brought To [facility] Ondansetron HCl 4 mg 10/09/24 20:58 Ondansetron Inj 2 Mg/Ml Inj 2 Ml IV 11/08/24 20:57 Q4HR PRN NAUSEA OR VOMITING Pharmacy Consult 1 each 10/10/24 02:58 Pharmacy Renal Dose Adjustment 1 Ea XX 11/09/24 02:57 PRN PRN CONSULT Sennosides 1 tab 10/10/24 01:10 Senna Tablet PO 11/09/24 01:09 QDAY PRN constipation Protocol Plan The patient is a 54-year-old female with previous medical history of chronic back pain, migraine, GI bleed, depression, valley fever, osteoarthritis of left shoulder who was brought to the ED due to generalized weakness, nausea, vomiting that started approximately around 7 PM when her mother noticed that she was weak, his speech became slurred, she became confused. #MARLYN -prerenal versus ATN, improving Patient had history of decreased oral intake since 2 weeks after starting Mounjaro likely due to dehydration with superimposed UTI Baseline creatinine in September 2024 1.1. Creatinine 2.6 at the time of admission, improved to 2.4 as of 10/11/2024 Renal ultrasound did not show any obstructive pathology, except for mild bilateral renal parenchymal scar formation Plan: -Started on LR at 125 mL/h -Avoid nephrotoxic medications and renally dose the medications -Traylor catheter is placed and monitoring the urine output #Hypercalcemia #Likely secondary to primary hyperparathyroidism Per chart review, parathyroid levels are elevated since 2020 -Repeat parathyroid hormone done during this admission showed PTH levels of 82 -Patient also found to have hypercalcemia since 2018, but patient is not on any treatment and patient is not aware of the condition -Phosphorus level is 3.5 on 10/10/2024 -25-hydroxy vitamin D level is 46.8 during this hospital admission Plan: - ringer's lactate at 125 mL/h - Cinacalcet 30mg p.o. BID - serum protein electrophoresis ordered, will follow-up with the results - Patient may need parathyroidectomy on the outpatient basis in view of severe hypercalcemia and risk of osteoporosis - 1, 25-hydroxy vitamin D are ordered to rule out secondary causes of hypercalcemia as patient also had active cocci, to rule out granulomatous causes - Urine calcium creatinine ratio is ordered to rule out familial hypocalciuric hypercalcemia #Acute encephalopathy, resolved #Likely 2/2 GNR bacteremia secondary to UTI superimposed on pre-existing hypercalcemia #Stroke rule out, very low suspicion #History of pseudotumor cerebri #History of migraines Patient's mother reports that approximately at 7 PM she had suddenly started to become weak, her speech became slurred okay. In the ED a stroke alert was called, CT head and CTA of head and neck were negative for acute disease, teleneuro was consulted, low suspicion for acute stroke. -Blood cultures in 1 bottle showed GNR and the other 1 showed no growth after 24 hours Plan: -Admitted to telemetry -Will continue aspirin, clopidogrel for now until MRI was done, less likely to have a stroke -Will continue ceftriaxone 1 g IV daily -Will continue IV fluids, NS 125 mL/h #UTI Patient complaining of lower abdominal pain but denies burning micturition UA was positive for signs of UTI -Urine cultures are still pending Plan: ? Ceftriaxone 1 g daily #History of valley fever Patient reported that she was tested positive for cocci in November 2023 and is using fluconazole since then Patient reported that she is supposed to see Dr Malone, but could not get his appointment Coccidioides titers sent to the [facility] during November and May 2024, tested negative Repeat IgM cocci done during this hospital admission tested positive, not sure if it is false positive as patient had negative titers during November and May 2024 and the sample sent to [facility] Plan: ? Will continue home fluconazole for now - Sample was sent to [facility] for the titers - Will consult ID as needed #Elevated transaminases AST 168, ALT 332 at the time of admission. Most likely in the setting of acute illness. -Levels are downtrending, AST 96, ALT 218 Plan: -Will monitor CMP #Chronic back pain Likely secondary to degenerative disc disease Patient had chronic back pain since 3 to 4 years from now Patient had history of morphine usage still /June 2024, later patient is not taking morphine as she is not approved for it Plan: ? Pain control as needed ? X-ray lumbar spine and thoracic spine is ordered that showed degenerative disc disease #History of depression Patient is using desvenlafaxine at home for her depression -Resumed desvenlafaxine but medication reconciliation from pharmacy is pending #Morbid obesity A1c in September 2024 5.8 Plan: ? Will hold Mounjaro for now Health maintenance: FEN: Regular diet DVT prophylaxis: heparin sc GI prophylaxis: none Dispo: telemetry CODE STATUS: Full code Patient plan of care was discussed with the attending physician, Dr. Layne and senior resident Dr. Bhavani Wall, PGY1 Attending Provider Attestation/Addendum I attest that I was physically present for the evaluation, physical examination, lab and imaging review of the patient with the residents. I discussed the case with the residents and agree with the findings and plans of care as documented above. At bedside today, patient is alert and oriented, able to answer questions and follow commands appropriately.? States that he has some mild body ache.? Vitals are stable, patient saturating well on room air.? Lab results show hemoglobin of 10.2.? Kidney function improving from BUN/creatinine of 34/2.82 35/2.4.? Calcium continues to be high, corrected calcium of 13.0 today.? Liver panel improving.? Alkaline phosphatase continues to be high though, 155 today.? Total protein and albumin level are at 5.9 and 3.7 today.? His vitamin D level is at 46.8, PTH is within normal range, 82.7.? Pending SPEP, 125 dihydroxy vitamin D level.? We will also obtain ionized calcium level.? We will also obtain lumbar x-rays.? Patient has been complaining of back pain.? Continues to be on Rocephin for UTI.? Patient has a history of valley fever and has been taking fluconazole for several months.? We will follow-up on cocci IgM. Kyree Layne MD
[2024-10-11] MEDS: FLUCONAZOLE 100 MG TABLET 200 MG PO (21:06)
[2024-10-11] MEDS: cefTRIAXone/D5w 1gm IV premix 1 GM/50 ML BAG IV (21:07)
--- NOTE | 2024-10-11 23:47 | ESPR_ITS ---
Documentation for date of: 10/11/24 Exam - Neurology Vital Signs Temp Pulse Resp BP Pulse Ox O2 Del Method FiO2 97.1 F 75 20 126/79 95 Room Air 30 10/11/24 20:00 10/11/24 22:52 10/11/24 22:52 10/11/24 20:00 10/11/24 20:00 10/11/24 20:00 10/10/24 21:59 Objective Labs 10/11/24 05:14 10/11/24 05:14 Labs: Laboratory Results - last 24 hr 10/11/24 10/11/24 05:14 11:37 WBC 3.8 RBC 3.60 L Hgb 10.2 L Hct 32.4 L MCV 90 MCH 28.3 MCHC 31.5 RDW Std Deviation 51.2 H Plt Count 157 D Neut % (Auto) 66 Lymph % (Auto) 18 [place] % (Auto) 12 Eos % (Auto) 3 Baso % (Auto) 1 Neut # (Auto) 2.5 Lymph # (Auto) 0.7 L [place] # (Auto) 0.4 Eos # (Auto) 0.1 Baso # (Auto) 0.0 Immature Gran # (Auto) 0.04 H Absolute Nucleated RBC 0.00 Immature Gran % 1 H Nucleated RBC % 0 Sodium 142 Potassium 4.3 Chloride 111 H Carbon Dioxide 22.6 Anion Gap 8 BUN 35 H Creatinine 2.4 H Estim Creat Clear Calc 29.3 L eGFR 23 L BUN/Creatinine Ratio 15 Glucose 97 Calculated Osmolality 291 Calcium 12.4 H Corrected Calcium 13.0 H Total Bilirubin 0.5 AST 96 H ALT 218 H Alkaline Phosphatase 155 H D Total Protein 5.9 Albumin 3.2 L Globulin 2.7 Albumin/Globulin Ratio 1.2 Coccidioides IgM Ab Positive A ABG Interpretation ABG results: 10/09/24 10/10/24 22:26 10:19 ABG pH 7.34 L 7.31 L ABG pCO2 41 45 ABG pO2 64 L 66 L ABG HCO3 22 23 ABG O2 Saturation 93 96 ABG Base Excess -4 L -4 L Assessment & Plan Assessment and plan (1) Stroke-like symptoms: Status: Acute (2) MARLYN (acute kidney injury): Status: Acute (3) LFT elevation: Status: Acute (4) Hypercalcemia: Status: Acute (5) UTI (urinary tract infection): Status: Acute (6) Pseudotumor cerebri syndrome: Status: Chronic
[2024-10-12] VITALS (9 sets, daily range): BP systolic 129–158; BP diastolic 73–92; PULSE 73–93; RESP 16–95; TEMP 36.2–36.7; O2SAT 94–99; BMI 11.0
[2024-10-12] MEDS: HEPARIN SOD INJ 5000 UNIT/ML VIAL SC ×3 (05:08→21:21)
[2024-10-12 05:40] LABS: Calcium, Ionized 6.4 mg/dL (4.6-5.6)
[2024-10-12 05:43] LABS: Basophils % (Auto) 1 % (0-2.5); Eosinophils # (Auto) 0.1 Thou/mm3 (0.0-0.5); Eosinophils % (Auto) 2 % (0-10); Hematocrit 31.3 % (36.0-46.0); Hemoglobin 10.2 g/dL (12.0-16.0); Immature Granulocytes % (Auto) 2 % (0-0); Immature Granulocytes Auto 0.09 Thou/mm3 (0.00-0.00); Lymphocytes # (Auto) 1.2 Thou/mm3 (1.0-4.8); Lymphocytes % (Auto) 28 % (10-50); Mean Corpuscular HGB Conc 32.6 g/dl (31.0-37.0); Mean Corpuscular Hemoglobin 28.2 pg (25.0-35.0); Mean Corpuscular Volume 87 fL (80-100); Monocytes # (Auto) 0.6 Thou/mm3 (0.0-0.8); Monocytes % (Auto) 14 % (0-12); Neutrophils # (Auto) 2.4 Thou/mm3 (1.8-7.7); Neutrophils % (Auto) 54 % (37-80); Nucleated Red Blood Cell % 0 /100 WBC (0); Platelet Count 163 Thou/mm3 (140-440); RDW Standard Deviation 48.5 fL (36.4-46.3); Red Blood Count 3.62 Miln/mm3 (4.00-5.20); White Blood Count 4.4 Thou/mm3 (3.6-11.0)
[2024-10-12 06:26] LABS: Alanine Aminotransferase 150 U/L (10-49); Albumin, Serum 3.3 gm/dL (3.5-5.0); Albumin/Globulin Ratio 1.4 (1.2-2.2); Alkaline Phosphatase 199 U/L (46-116); Anion Gap 10 (7-16); Aspartate Amino Transferase 55 U/L (0-34); BUN/Creatinine Ratio 12 Ratio (12-20); Bilirubin,Total 0.4 mg/dL (0.3-1.2); Blood Urea Nitrogen 24 mg/dL (9-23); Calcium 11.6 mg/dL (8.3-10.6); Calcium (Corrected) 12.2 mg/dL (8.5-10.1); Carbon Dioxide 21.4 mMol/L (20.0-31.0); Chloride 109 mMol/L (98-107); Estimated Creatinine Clearance 35.1 mL/min (>60); Globulin 2.4 gm/dL (2.3-3.5); Glucose 91 mg/dL (74-106); Osmolality,Calculated 283 (275-295); Potassium 4.2 mMol/L (3.4-5.1); Sodium 140 mMol/L (136-145); Total Protein 5.7 gm/dL (5.7-8.2); eGFR 29 See Note
[2024-10-12] MEDS: CINACALCET HCL 30 MG TABLET (NON-FORM) PO ×2 (09:04→21:21)
[2024-10-12] MEDS: FLUCONAZOLE 100 MG TABLET 200 MG PO ×2 (09:04→20:35)
[2024-10-12] MEDS: ASPIRIN EC 81 MG TABEC PO (09:05)
[2024-10-12] MEDS: CLOPIDOGREL BISULFATE 75 MG TABLET PO (09:05)
--- NOTE | 2024-10-12 09:22 | PCS.ST ---
SS follow up note; SS met with patient at bedside to present accepting facilities, patient reported she would like to discuss with her mother before deciding what facility. SS contacted patient's mother, Any and she informed SS she would let SS know this afternoon what facility she would like patient to discharge too. SS will stand by for further needs.
--- NOTE | 2024-10-12 10:30 | CHAP ---
Patient was visited by a Spiritual Care Volunteer on 10/12/2024 between 0900 and 0928 and received comfort, encouragement and/or prayer.
--- NOTE | 2024-10-12 11:06 | PD.RESPRO ---
Documentation for date of: 10/12/24 Subjective Subjective Interval history: Patient seen and examined at bedside. No acute overnight events. Mentation seems to be back at baseline, patient is still lethargic has minimal pain in the lower back. Brain MRI showed demyelinating disease pattern. Exam Vital Signs Temp Pulse Resp BP Pulse Ox O2 Del Method FiO2 97.7 F 90 18 147/92 H 96 Room Air 30 10/12/24 08:00 10/12/24 10:42 10/12/24 10:42 10/12/24 08:00 10/12/24 08:00 10/12/24 08:00 10/10/24 21:59 Narrative Exam GENERAL: AAOX3, follows commands, sleepy but not lethargic NEURO: RENTAL CAR DELIVERER grossly intact, moves extremities x4 HEENT: Moist mucosa. Eyes open, symmetrical, & clear CARDIO: No chest pain on palpation. Heart RRR, no obvious murmurs PULM: No noted coughing/dyspnea. Lungs CTA B/L GI: Abdomen soft, nondistended, no pain on palpation. BSx4 URO/TIE TAPE MACHINE OPERATOR:: No further abnormalities noted. SKIN/MSK/EXT: Slightly reduced range of motion of the left shoulder Objective Labs 10/12/24 05:19 10/12/24 05:19 Labs: Laboratory Results - last 24 hr 10/11/24 10/12/24 11:37 05:19 WBC 4.4 RBC 3.62 L Hgb 10.2 L Hct 31.3 L MCV 87 MCH 28.2 MCHC 32.6 RDW Std Deviation 48.5 H Plt Count 163 Neut % (Auto) 54 Lymph % (Auto) 28 [place] % (Auto) 14 H Eos % (Auto) 2 Baso % (Auto) 1 Neut # (Auto) 2.4 Lymph # (Auto) 1.2 [place] # (Auto) 0.6 Eos # (Auto) 0.1 Baso # (Auto) 0.0 Immature Gran # (Auto) 0.09 H Absolute Nucleated RBC 0.00 Immature Gran % 2 H Nucleated RBC % 0 Sodium 140 Potassium 4.2 Chloride 109 H Carbon Dioxide 21.4 Anion Gap 10 BUN 24 H Creatinine 2.0 H Estim Creat Clear Calc 35.1 L eGFR 29 L BUN/Creatinine Ratio 12 Glucose 91 Calculated Osmolality 283 Calcium 11.6 H Corrected Calcium 12.2 H Ionized Calcium 6.4 H Total Bilirubin 0.4 AST 55 H ALT 150 H Alkaline Phosphatase 199 H D Total Protein 5.7 Albumin 3.3 L Globulin 2.4 Albumin/Globulin Ratio 1.4 Coccidioides IgM Ab Positive A ABG Interpretation ABG results: 10/09/24 10/10/24 22:26 10:19 ABG pH 7.34 L 7.31 L ABG pCO2 41 45 ABG pO2 64 L 66 L ABG HCO3 22 23 ABG O2 Saturation 93 96 ABG Base Excess -4 L -4 L Quality Measures Quality Measures none Assessment & Plan Assessment Current Active Medications: Generic Name Dose Route Start Last Admin Trade Name Freq PRN Reason Stop Dose Admin Acetaminophen 650 mg 10/10/24 01:10 Acetaminophen 325 Mg Tablet PO 11/09/24 01:09 Q6H PRN Fever >100.3 or pain 1-3 Aspirin 81 mg 10/10/24 09:00 10/12/24 09:05 Aspirin Ec 81 Mg Tabec PO 11/09/24 08:59 81 mg QDAY FLOR Administration Cinacalcet 30 mg 10/10/24 13:00 10/12/24 09:04 Cinacalcet Hcl 30 Mg Tablet (Non-Form) PO 11/09/24 12:59 30 mg BID FLOR Administration Clopidogrel Bisulfate 75 mg 10/10/24 09:00 10/12/24 09:05 Clopidogrel Bisulfate 75 Mg Tablet PO 11/09/24 08:59 75 mg QDAY FLOR Administration Dextrose 50 ml 10/10/24 14:11 Dextrose 50%-Water Inj 50 Ml Syringe IV 11/09/24 14:10 X1 PRN Blood Sugar - Low Fluconazole 200 mg 10/10/24 21:00 10/12/24 09:04 Fluconazole 100 Mg Tablet PO 10/17/24 20:59 200 mg BID FLOR Administration Heparin Sodium (Porcine) 5,000 unit 10/10/24 06:00 10/12/24 05:08 Heparin Sod Inj 5000 Unit/Ml Vial SC 10/24/24 05:59 5,000 unit Q8HR FLOR Administration Ceftriaxone Sodium/Dextrose 1 gm in 50 mls @ 100 mls/hr 10/10/24 21:00 10/12/24 02:53 Rocephin/D5w 1gm Iv Premix IV 10/17/24 20:59 Infused HS FLOR Infusion Labetalol HCl 10 mg 10/09/24 20:58 Labetalol Inj 5 Mg/Ml Vial 20 Ml IV Q15M PRN HYPER Home Medication- 50 mg 10/11/24 09:00 10/12/24 09:12 Please Speak With PO 11/10/24 08:59 Not Given Patient Caregiver To DAILY FLOR Have Rx Brought To [facility] Ondansetron HCl 4 mg 10/09/24 20:58 Ondansetron Inj 2 Mg/Ml Inj 2 Ml IV 11/08/24 20:57 Q4HR PRN NAUSEA OR VOMITING Pharmacy Consult 1 each 10/10/24 02:58 Pharmacy Renal Dose Adjustment 1 Ea XX 11/09/24 02:57 PRN PRN CONSULT Sennosides 1 tab 10/10/24 01:10 Senna Tablet PO 11/09/24 01:09 QDAY PRN constipation Protocol Plan Summary: The patient is a 54-year-old female with a past medical history of chronic back pain, migraine, GI bleed, hyperparathyroidism, bilateral PE, OA of the left shoulder status post replacement who presented to the ED on 10/10/2024 with altered mental status, slurred speech and generalized weakness. Admitted for acute encephalopathy with stroke rule out. #Acute encephalopathy, likely infectious-resolved #Acute CVA ruled out #History of pseudotumor cerebri #History of migraines The patient presented with her mother brought her in with complaints that she had been really weak and her speech had become slurred. She does have a history of pseudotumor cerebri and migraines but this admission did not endorse headaches. In the ED, stroke alert was called head CT and CTA were done which was negative, teleneuro was consulted and the patient was admitted for further workup of acute encephalopathy. Blood cultures returned positive for GNR, likely infectious cause. MRI brain negative, showing only demyelinating disease pattern. Mentation back at baseline today, patient not as lethargic, only complaint of being sleepy. Plan: -Continue to monitor mental status -Optimize other medical management with IV antibiotics and fluids as needed. Neurology will continue to follow. #Urinary tract infection #GNR bacteremia #Transaminitis #Chronic back pain #History of valley fever -Management per primary team Case was discussed with attending physician, Dr Terri Yusuf MD PGY-1 Disclaimer: This note was dictated by speech recognition. Minor errors in metal patternmaker may be present due to voice recognition software. Attending Provider Attestation/Addendum I personally have seen and examined the patient at the bedside. Patient is back to baseline most of the time with intermittent visual hallucinations. Will add trazodone 100 mg at bedtime to help with sleep as she has not been sleeping since she got here.
--- NOTE | 2024-10-12 12:01 | PC.NURSE ---
Visual hallucinations noted this afternoon made MD Wall aware to assess at bedside. Pt was assessed by MD per MD will contact Dr Murray for recommendations today. Pt comfortable laying in bed. No s/s of distress.
--- NOTE | 2024-10-12 14:40 | PC.SS ---
Addendum entered and electronically signed by ADRIA Lara 10/12/24 16:16: REHABILITATION CENTER MANAGER updated patient and patient's mother that insurance will not authorization SNF placement for the patient. D/C plan will be home with home health. Patient requesting outpatient physical therapy. No preferred location identified by the patient. Original Note: ADRIA received phone call from [employer] staff stating that authorization will not be granted. [employer] in agreement with home w/home health. Decision based on review of current physical therapy note.
--- NOTE | 2024-10-12 15:56 | PC.NURSE ---
24 hour urine collection started now.
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
[2024-10-12] MEDS: cefTRIAXone/D5w 1gm IV premix 1 GM/50 ML BAG IV (20:35)
[2024-10-12] MEDS: traZODone HCL 50 MG TABLET 100 MG PO (21:21)
[2024-10-13] VITALS (10 sets, daily range): BP systolic 140–160; BP diastolic 83–98; PULSE 73–90; RESP 17–97; TEMP 35.9–36.3; O2SAT 95–99; BMI 42.9; BMI 42.8
[2024-10-13] MEDS: HEPARIN SOD INJ 5000 UNIT/ML VIAL SC ×2 (05:06→13:46)
--- NOTE | 2024-10-13 06:00 | XR_ITS ---
Examination: AP chest single view Technique :AP portable upright chest single view Exam date 9: February 08, 2025 0603 hrs. Comparison September 23, 2024 Indications: Generalized weakness shortness of breath today Findings: Normal heart size Lungs are clear Moderate osteopenia Impression: No pneumonia identified
[2024-10-13 06:28] LABS: Basophils % (Auto) 1 % (0-2.5); Eosinophils # (Auto) 0.1 Thou/mm3 (0.0-0.5); Eosinophils % (Auto) 2 % (0-10); Hematocrit 35.5 % (36.0-46.0); Hemoglobin 11.9 g/dL (12.0-16.0); Immature Granulocytes % (Auto) 3 % (0-0); Immature Granulocytes Auto 0.14 Thou/mm3 (0.00-0.00); Lymphocytes # (Auto) 1.7 Thou/mm3 (1.0-4.8); Lymphocytes % (Auto) 35 % (10-50); Mean Corpuscular HGB Conc 33.5 g/dl (31.0-37.0); Mean Corpuscular Hemoglobin 28.1 pg (25.0-35.0); Mean Corpuscular Volume 84 fL (80-100); Monocytes # (Auto) 0.6 Thou/mm3 (0.0-0.8); Monocytes % (Auto) 12 % (0-12); Neutrophils # (Auto) 2.3 Thou/mm3 (1.8-7.7); Neutrophils % (Auto) 47 % (37-80); Nucleated Red Blood Cell % 0 /100 WBC (0); Platelet Count 170 Thou/mm3 (140-440); RDW Standard Deviation 46.1 fL (36.4-46.3); Red Blood Count 4.23 Miln/mm3 (4.00-5.20); White Blood Count 4.8 Thou/mm3 (3.6-11.0)
[2024-10-13 06:52] LABS: Alanine Aminotransferase 112 U/L (10-49); Albumin, Serum 3.7 gm/dL (3.5-5.0); Albumin/Globulin Ratio 1.4 (1.2-2.2); Alkaline Phosphatase 209 U/L (46-116); Anion Gap 13 (7-16); Aspartate Amino Transferase 34 U/L (0-34); BUN/Creatinine Ratio 13 Ratio (12-20); Bilirubin,Total 0.4 mg/dL (0.3-1.2); Blood Urea Nitrogen 20 mg/dL (9-23); Calcium 11.6 mg/dL (8.3-10.6); Calcium (Corrected) 11.8 mg/dL (8.5-10.1); Carbon Dioxide 21.3 mMol/L (20.0-31.0); Chloride 108 mMol/L (98-107); Creatinine (Component) 1.6 mg/dL (0.6-1.3); Estimated Creatinine Clearance 43.8 mL/min (>60); Globulin 2.7 gm/dL (2.3-3.5); Glucose 98 mg/dL (74-106); Osmolality,Calculated 285 (275-295); Potassium 3.9 mMol/L (3.4-5.1); Sodium 142 mMol/L (136-145); Total Protein 6.4 gm/dL (5.7-8.2); eGFR 38 See Note
[2024-10-13] MEDS: CINACALCET HCL 30 MG TABLET (NON-FORM) PO (09:20)
[2024-10-13] MEDS: FLUCONAZOLE 100 MG TABLET 200 MG PO (09:20)
--- NOTE | 2024-10-13 11:30 | PC.SS ---
SS follow up note; Patient is getting IV Fluids and getting treated for UTI with IV ABX.
--- NOTE | 2024-10-13 14:44 | ESPR_ITS ---
Subjective Subjective Interval history: cocci pos cxr neg. bc with gnr same in bc as urine. ua abn. renal imaging ok. no stones or blockage. some ckd, improving. cocci pos but confirmation will take a while. flucon 200/day ok with ckd Exam Vital Signs Temp Pulse Resp BP Pulse Ox O2 Del Method FiO2 97.2 F 90 18 160/87 H 96 Room Air 10/13/24 11:30 10/13/24 12:00 10/13/24 11:30 10/13/24 11:30 10/13/24 11:30 10/13/24 11:30 10/13/24 03:08 Narrative Exam findings noted. copy of note to heron sawyer and emily here. benign exam. so po abx ok Objective - Internal Medicine Labs 10/13/24 04:24 10/13/24 04:24 Labs: Laboratory Results - last 24 hr 10/11/24 10/13/24 11:54 04:24 WBC 4.8 RBC 4.23 Hgb 11.9 L Hct 35.5 L MCV 84 MCH 28.1 MCHC 33.5 RDW Std Deviation 46.1 Plt Count 170 Neut % (Auto) 47 Lymph % (Auto) 35 [place] % (Auto) 12 Eos % (Auto) 2 Baso % (Auto) 1 Neut # (Auto) 2.3 Lymph # (Auto) 1.7 [place] # (Auto) 0.6 Eos # (Auto) 0.1 Baso # (Auto) 0.0 Immature Gran # (Auto) 0.14 H Absolute Nucleated RBC 0.00 Immature Gran % 3 H Nucleated RBC % 0 Sodium 142 Potassium 3.9 Chloride 108 H Carbon Dioxide 21.3 Anion Gap 13 BUN 20 Creatinine 1.6 H Estim Creat Clear Calc 43.8 L eGFR 38 L BUN/Creatinine Ratio 13 Glucose 98 Calculated Osmolality 285 Calcium 11.6 H Corrected Calcium 11.8 H Total Bilirubin 0.4 AST 34 ALT 112 H Alkaline Phosphatase 209 H Total Protein 6.4 Albumin 3.7 Globulin 2.7 Albumin/Globulin Ratio 1.4 Misc Test Result See Sep Rpt ABG Interpretation ABG results: 10/09/24 10/10/24 22:26 10:19 ABG pH 7.34 L 7.31 L ABG pCO2 41 45 ABG pO2 64 L 66 L ABG HCO3 22 23 ABG O2 Saturation 93 96 ABG Base Excess -4 L -4 L Assessment & Plan A&P Narrative sepsis, urinary possible cocci with neg cxr. unverified at this time changed to po keflex for urine. flucon changed to daily too. will see friday if still here, will likely not have data from [facility] till then. if home before friday, finish 7d rx for urine overall, hence the keflex thru sun pm. Time Spent With Patient Time: Total time spent is greater than 50% in coordination of care (as documented) at patient's floor/unit and/or counseling patient:
--- NOTE | 2024-10-13 15:02 | PC.SS ---
SS follow up note; SS met with patient and patient's mother in regards to outpatient PT, SS sent referral through [facility] as well as Faxed to Outpatient PT.
--- NOTE | 2024-10-13 15:56 | PD.RESDS ---
Planned Discharge Date 10/13/24 DS: Providers Provider Date of admission: 10/10/24 01:10 Primary care physician: Nba Heredia MD Admitting Provider: Nate Dalton MD Attending Provider on Admission: Kyree Layne MD Consults: 10/09/24 20:58 Consult to Neurology / Tele-Neurology Routine Comment: Consulting Provider: [facility] 10/10/24 02:55 Referral Physical Therapy Routine Comment: Physician Instructions: 10/10/24 03:09 Consult to Neurology / Tele-Neurology Routine Comment: sttroke rule out, hx of pseudotumor cerebri Consulting Provider: Percy Murray 10/12/24 10:18 Consult to Infectious Diseases Routine Comment: Cocci IGM+ on flucon 1 yr, UCD negative serologyx3 Consulting Provider: Musa Malone Attending Provider on DC: Kofi Wall MD Discharging Provider: Kofi Wall MD DS: Diagnosis Problem List Completed Was Problem List Reviewed/Reconciled?: Yes Hospital Course Hospital Course Hospital course: A 54-year-old female with significant past medical history of chronic back pain, migraine, GI bleed, hyperparathyroidism, valley fever on fluconazole since November 2023, osteoarthritis of left shoulder pending surgery by Dr. Herrera brought to the hospital with chief complaints of generalized weakness, nausea and vomiting and admitted in the hospital for MARLYN likely secondary to E. coli bacteremia secondary to UTI, hypercalcemia ED course: Patient suspected to have acute stroke in the ED for which CT head, CT angio head and neck was done which is negative for stroke. Teleneurology was consulted and had low suspicion of stroke. Labs at the time of admission are remarkable for Hb 10.2, sodium 133, creatinine 2.6, corrected calcium 12.4, AST 168, ALT 332. Urine analysis positive for WBC 124, 3+ bacteria Hospital course: Patient is started on ceftriaxone 1 g IV daily, IV fluids and Cinacalcet. Dr. Murray was consulted for suspicion of stroke and recommended to discontinue dual antiplatelets as patient does not have any features suggestive of stroke. MRI did not show any significant infarcts. Labs showed parathyroid of 82, 25-hydroxy vitamin D 46.8. Patient had significant improvement during the hospital stay with downtrending creatinine, transaminase levels. Patient again tested positive for IgM cocci. Titers were sent to [facility]. Dr Malone was consulted and recommended to continue fluconazole 200 Mg daily for now till the titers come back. As per physical therapy, patient was supposed to go to SNF but as her insurance denied patient was discharged to home initially thought to send to home with home health, but patient and her family denied home health. Explained about her hyperparathyroidism and recommended to follow-up with mobility architect manager and endocrine surgeon on outpatient basis to remove the parathyroids 24-hour urinary calcium, serum protein electrophoresis, 1, 25 dihydroxy vitamin D levels are still pending, recommended to follow-up with those levels in the outpatient basis Recommended to do CMP within 1 week of discharge and follow-up with primary care provider within 1 week of discharge Patient is discharged to home with the following medications and recommendations -Follow-up with PCP within 1 week of discharge. If you do not have appointment, please follow-up with the [facility] with Dr. Wall on 10/22/2024. Call [phone] to make an appointment. -Follow up with DR. Elam in [place], Assistant Associate Full Professor [phone] -Continue cephalexin 250 Mg p.o. 3 times daily for 3 days -Start taking alendronate 10 Mg p.o. daily -Changed dose of fluconazole from 200 Mg twice daily to once daily -Continue rest of her home medications -Recommended to do CMP before having an office visit -Return to ED if symptoms persist or return #Mild delirium, likely hospital induced - Educated on sleep hygiene and patient is appropriately answering all the questions -Will re evaluate tomorrow #MARLYN -prerenal versus ATN, improving Patient had history of decreased oral intake since 2 weeks after starting Mounjaro likely due to dehydration with superimposed UTI Baseline creatinine in September 2024 1.1. Creatinine 2.6 at the time of admission, improved to 2.0 as of 10/12/2024 Renal ultrasound did not show any obstructive pathology, except for mild bilateral renal parenchymal scar formation Plan: -Avoid nephrotoxic medications and renally dose the medications -Traylor catheter is placed and monitoring the urine output #Hypercalcemia #Likely secondary to primary hyperparathyroidism Per chart review, parathyroid levels are elevated since 2020 -Repeat parathyroid hormone done during this admission showed PTH levels of 82 -Patient also found to have hypercalcemia since 2018, but patient is not on any treatment and patient is not aware of the condition -Phosphorus level is 3.5 on 10/10/2024 -25-hydroxy vitamin D level is 46.8 during this hospital admission Plan: - Cinacalcet 30mg p.o. BID - serum protein electrophoresis ordered, will follow-up with the results - Patient may need parathyroidectomy on the outpatient basis in view of severe hypercalcemia and risk of osteoporosis - 1, 25-hydroxy vitamin D are ordered to rule out secondary causes of hypercalcemia as patient also had active cocci, to rule out granulomatous causes - Urine calcium creatinine ratio is ordered to rule out familial hypocalciuric hypercalcemia #Acute encephalopathy, resolved #Likely 2/2 E.coli bacteremia secondary to UTI superimposed on pre-existing hypercalcemia #Stroke ruled out #History of pseudotumor cerebri #History of migraines #UTI #History of valley fever # Transaminitis #Chronic back pain #History of depression #Morbid obesity Patient plan of care was discussed with the attending physician, Dr. Layne and senior resident Dr. Bhavani Wall, PGY1 Time Spent with Patient Time attestation: Total time spent providing and/or coordinating discharge services: Time spent: Less than 30 minutes Exam Vital Signs Temp Pulse Resp BP Pulse Ox O2 Del Method FiO2 97.2 F 90 18 160/87 H 96 Room Air 25 10/13/24 11:30 10/13/24 12:00 10/13/24 11:30 10/13/24 11:30 10/13/24 11:30 10/13/24 11:30 10/13/24 03:08 Narrative Exam General: Awake, obese, appears chronically ill HEENT: Normocephalic, atraumatic, mucous membranes moist. Heart: Regular rate and rhythm, no murmurs. Lungs: Clear to auscultation with no wheezing or crackles. Abdomen: Soft, nondistended, nontender, positive bowel sounds. ?No guarding or rebound tenderness. Neurologic: No focal neurological deficits noted Extremities: No edema. Severe osteoarthritis in left shoulder with limitation of movements Skin: No rash or ecchymoses. Severe hair loss Discharge Plan Plan Patient Disposition: HOME (Self Care) Patient condition on transfer: Stable Care Plan Goals: -Follow-up with PCP within 1 week of discharge. If you do not have appointment, please follow-up with the [facility] with Dr. Wall on 10/22/2024. Call [phone] to make an appointment. -Follow up with DR. Elam in [place], Assistant Associate Full Professor [phone] -Continue cephalexin 250 Mg p.o. 3 times daily for 3 days -Start taking alendronate 10 Mg p.o. daily -Changed dose of fluconazole from 200 Mg twice daily to once daily -Continue rest of her home medications -Recommended to do CMP before having an office visit -Return to ED if symptoms persist or return Prescriptions/Referrals Prescriptions/Med Rec: New cephalexin 250 mg Capsule 500 mg PO TID Qty: 9 0RF alendronate 10 mg tablet 10 mg PO QAM Qty: 30 0RF Rx Instructions: Take 30 minutes before any food on an empty stomach. Do not lay down after taking pill as it might cause acid reflux. cephalexin 500 mg tablet 500 mg PO TID 3 Days Qty: 9 0RF Continued trazodone 150 mg Tablet 300 mg PO QDAY montelukast 10 mg Tablet 10 mg PO QDAY albuterol sulfate 90 mcg/actuation HFA aerosol inhaler 1 inh INHALATION BID PRN (Reason: Wheezing) Patient Comments: INHALE 1 TO 2 PUFFS BY MOUTH EVERY 4 TO 6 HOURS NEEDED FOR PERSISTENT COUGH OR SHORTNESS OF BREATH OR WHEEZING finasteride 1 mg Tablet 1 mg PO QDAY rosuvastatin 20 mg tablet 20 mg PO DAILY desvenlafaxine succinate 100 mg tablet extended release 24 hr 50 mg PO DAILY famotidine 20 mg tablet 20 mg PO BID Patient Comments: take 1 tablet by mouth twice a day baclofen 10 mg Tablet 20 mg PO TID docusate sodium 100 mg capsule 100 mg PO BID Patient Comments: take 1 capsule by mouth twice a day fluticasone propionate 50 mcg/actuation spray,suspension 1 spray INTRANASAL BID Patient Comments: USE 1 SPRAY IN EACH NOSTRIL 1-2 TIMES PER DAY FOR PERSISTENT ALLERGIES pregabalin 150 mg Capsule 150 mg PO TID Linzess 290 mcg capsule 290 mcg PO QDAY Mounjaro 2.5 mg/0.5 mL pen injector 2.5 mg SUBCUT QWEEK Patient Comments: INJECT 2.5 MG UNDER THE SKIN EVERY WEEK FOR 4 WEEKS Changed cetirizine 10 mg Tablet 10 mg PO PRN PRN (Reason: cough) Qty: 30 0RF fluconazole 200 mg tablet 200 mg PO QDAY Qty: 30 0RF Discontinued baclofen 20 mg tablet 20 mg PO TID Referrals: Nba Heredia MD [Primary Care Provider] - Patient/Caregiver Discharge Instructions Education Materials: Acute Kidney Failure Dc, Hypercalcemia Dc Print Language: Lebanese Stand Alone Forms: Ratna Award Info., Patient Portal Info Letter Discharge Order Discharge Orders: Discharge (Routine); Ordered 10/13/24 Ordered By: Kofi Wall Quality Discharge Quality Measures VTE prophylaxis MD Attestestation MD Attestation I attest that I was physically present for the evaluation, physical examination, lab and imaging review of the patient with the residents. I discussed the case with the residents and agree with the findings and plans of care as documented above. Kyree Layne MD
[2024-10-13 16:38] LABS: Creatinine, Urine Volume 1700 mL/24hr (600-1800)
[2024-10-13 16:49] LABS: Creatinine, 24 Hour Urine 0.8 gm/24hr (0.6-1.8); Creatinine,Urine 47 mg/dL (30-125)
--- NOTE | 2024-10-13 16:53 | PC.CM ---
Patient will be going to outpatient PT and declined home health services.
[2024-10-15 06:55] LABS: Vitamin D,1,25 (OH)2,Total 22 pg/mL (18-72); Vitamin D2, 1,25 (OH)2 <8 pg/mL; Vitamin D3, 1,25 (OH)2 22 pg/mL
[2024-10-17 13:51] LABS: Albumin 2.4 g/dL (3.8-4.8); Alpha-1-Globulin 0.5 g/dL (0.2-0.3); Alpha-2-Globulin 0.8 g/dL (0.5-0.9); Beta-1-Globulin 0.3 g/dL (0.4-0.6); Beta-2-globulin 0.3 g/dL (0.2-0.5); Gamma Globulin 0.7 g/dL (0.8-1.7)
[2024-10-18 06:47] LABS: Protein, total, serum 5.1 g/dL (6.1-8.1)
[2024-10-18 06:52] LABS: ANA Screen, IFA NEGATIVE (NEGATIVE)
--- NOTE | 2024-10-19 09:28 | ESCONSULT_ITS ---
RE: VITO US : 1970 DATE OF CONSULTATION: 10/13/2024 REFERRING PHYSICIAN: Dr. Layne and Dr. Nba Heredia. REASON FOR CONSULTATION: Valley fever and bacteremia. HISTORY OF PRESENT ILLNESS: The patient was bacteremic with a urinary tract infection, although her symptoms were rather vague and non-urinary. She presented more with balance issues and had positive blood sugar with E. coli and positive urine as well. She has had valley fever test positive for IgM locally number of times in the past and was always negative at [facility]. This is important to note as her chest x-ray has also been unrevealing. I to see her in clinic because there is really nothing I would do except maybe stop her medication, which Dr. Heredia can certainly do. Her medical problems include unspecified mental health problems. She lives with her mother. She has been on some pain treatment and has long-listed medications, which others have administered. Her family states she does not get outside much, but she does get outside twice a day to walk to get the mail. She has not yet been ambulatory. Traylor catheter just removed. She still has some pain, but mostly in her shoulders for which she is awaiting an orthopedic evaluation . She will need a shoulder replacement. SURGICAL HISTORY: Includes hysterectomy, total hysterectomy years ago, cholecystectomy, appendectomy, tonsillectomy, and laparoscopy 4 times. There is no appendectomy history. ALLERGIES: POSSIBLE ERYTHROMYCIN ALLERGY. RECORDS SUGGEST NO ANTIBIOTIC ALLERGIES. IMMUNIZATIONS: Last tetanus is possibly 30 years ago per patient. She does take a flu shot every year, has had two COVID vaccines and does not recall pneumococcal vaccine with surgery, but may have had it. She is not typically diabetic. FAMILY HISTORY: Unremarkable. SOCIAL HISTORY: She does live at home with her mother. She is a nonsmoker and there is no other findings. PHYSICAL EXAMINATION: General: Pleasant woman, not acutely ill, but she is not getting out of bed, so the family of nervous about this. Her home is not wheelchair friendly and so they are going to need probably to verify that she can ambulate before they let her go. She has benign abdomen and . She is in no distress. She does not require oxygen and is on CPAP at night, which she has only tried once. She may have sleep apnea. That evaluation is per others. ASSESSMENT: 1. 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 2. Positive blood culture from admission with positive urine with the same germ suggesting the urine was likely the source. 3. Abnormal urinalysis with pyuria, although it is not striking. It is enough that probably it accounts for the bacteruria, bacteremia and . RECOMMENDATIONS: 1. I am going to switch her to pills at this point. She would probably go home on Keflex 500 mg t.i.d. 2. I will also reduce her fluconazole dose to 200 mg daily. 3. I have asked Dr. Heredia if her test is negative stop her fluconazole. If it is positive, I can certainly see her but needs to be at [facility]. cc: Roverto Heredia MD DT: 15:21:44 TT: 16:45:00 Ref: [id number] - TID: [id number]
== END 2024-10-13 16:25 | disposition home or self-care (01) | DRG 70 ==
LOC: SERX 10-10 00:58 → SERHOLD 10-11 06:17 → S2NX 10-11 06:17 → S3NX 10-12 17:00
PROVIDERS: Student in an Organized Health Care Education/Training Program; Admitting Provider Internal Medicine; Emergency Provider Emergency Medicine; PCP Family Medicine; Visit Provider Student in an Organized Health Care Education/Training Program
DX: G93.41 Metabolic encephalopathy (principal); N17.0 Acute kidney failure with tubular necrosis; N39.0 Urinary tract infection, site not specified; B38.0 Acute pulmonary coccidioidomycosis; Z68.41 Body mass index [BMI] 40.0-44.9, adult; G89.29 Other chronic pain; R47.81 Slurred speech; G43.909 Migraine, unspecified, not intractable, without status migrainosus; E83.52 Hypercalcemia; F32.A Depression, unspecified; M19.012 Primary osteoarthritis, left shoulder; R53.1 Weakness; N18.9 Chronic kidney disease, unspecified; G93.2 Benign intracranial hypertension; M54.50 Low back pain, unspecified; E86.0 Dehydration; R74.01 Elevation of levels of liver transaminase levels; R26.81 Unsteadiness on feet; R79.89 Other specified abnormal findings of blood chemistry; E66.01 Morbid (severe) obesity due to excess calories; Z96.612 Presence of left artificial shoulder joint; Z79.899 Other long term (current) drug therapy; B96.20 Unspecified Escherichia coli [E. coli] as the cause of diseases classified elsewhere
CPT/HCPCS: 36415; 36600; 70450; 70496; 70498; 70551; 71045; 72072; 72100; 76770; 80053; 80061; 80307; 80320; 81001; 82140; 82306; 82330; 82436; 82570; 82652; 82803; 83735; 83880; 83970; 84100; 84133; 84155; 84165; 84300; 84439; 84443; 84484; 85025; 85610; 85730; 86038; 86635; 87040; 87077; 87086; 87186; 93005; 94660; 94762; 96365; 96375; 97162; 99291; A4649; J0604; J0696; J1643; J2405; J7030; J7042; J7050; J7120; Q9967; A9270; G0480

== ENCOUNTER → 2024-10-27 | Outpatient (CLI) | payer OTHER, SELFPAY ==
[2024-10-27 13:48] LABS: Alanine Aminotransferase 124 U/L (10-49); Albumin, Serum 4.3 gm/dL (3.5-5.0); Albumin/Globulin Ratio 1.5 (1.2-2.2); Alkaline Phosphatase 402 U/L (46-116); Anion Gap 7 (7-16); Aspartate Amino Transferase 125 U/L (0-34); BUN/Creatinine Ratio 13 Ratio (12-20); Bilirubin,Total 0.8 mg/dL (0.3-1.2); Blood Urea Nitrogen 17 mg/dL (9-23); Calcium 11.2 mg/dL (8.3-10.6); Calcium (Corrected) 11.2 mg/dL (8.5-10.1); Carbon Dioxide 26.5 mMol/L (20.0-31.0); Chloride 108 mMol/L (98-107); Creatinine (Component) 1.3 mg/dL (0.6-1.3); Globulin 2.9 gm/dL (2.3-3.5); Glucose 102 mg/dL (74-106); Osmolality,Calculated 282 (275-295); Potassium 5.2 mMol/L (3.4-5.1); Sodium 141 mMol/L (136-145); Total Protein 7.2 gm/dL (5.7-8.2); eGFR 49 See Note
== END | disposition home or self-care (01) ==
LOC: COPL 11:40
PROVIDERS: PCP Family Medicine
DX: N17.9 Acute kidney failure, unspecified (principal); E83.52 Hypercalcemia
CPT/HCPCS: 36415; 80053

== ENCOUNTER → 2024-11-05 | Outpatient (CLI) | payer OTHER, SELFPAY ==
[2024-11-05 14:46] LABS: Basophils % (Auto) 1 % (0-2.5); Eosinophils # (Auto) 0.4 Thou/mm3 (0.0-0.5); Eosinophils % (Auto) 6 % (0-10); Hematocrit 35.6 % (36.0-46.0); Immature Granulocytes % (Auto) 0 % (0-0); Immature Granulocytes Auto 0.01 Thou/mm3 (0.00-0.00); Lymphocytes # (Auto) 2.2 Thou/mm3 (1.0-4.8); Lymphocytes % (Auto) 35 % (10-50); Mean Corpuscular HGB Conc 33.7 g/dl (31.0-37.0); Mean Corpuscular Hemoglobin 29.8 pg (25.0-35.0); Mean Corpuscular Volume 88 fL (80-100); Monocytes # (Auto) 0.5 Thou/mm3 (0.0-0.8); Monocytes % (Auto) 7 % (0-12); Neutrophils # (Auto) 3.2 Thou/mm3 (1.8-7.7); Neutrophils % (Auto) 51 % (37-80); Nucleated Red Blood Cell % 0 /100 WBC (0); Platelet Count 265 Thou/mm3 (140-440); RDW Standard Deviation 51.8 fL (36.4-46.3); Red Blood Count 4.03 Miln/mm3 (4.00-5.20); White Blood Count 6.4 Thou/mm3 (3.6-11.0)
[2024-11-05 14:57] LABS: Parathyroid Hormone Intact 207.9 pg/ml (18.5-88.0)
[2024-11-05 14:58] LABS: Albumin, Serum 4.2 gm/dL (3.5-5.0); Anion Gap 6 (7-16); BUN/Creatinine Ratio 14 Ratio (12-20); Blood Urea Nitrogen 18 mg/dL (9-23); Calcium 9.9 mg/dL (8.3-10.6); Calcium (Corrected) 9.9 mg/dL (8.5-10.1); Carbon Dioxide 27.8 mMol/L (20.0-31.0); Chloride 108 mMol/L (98-107); Creatinine (Component) 1.3 mg/dL (0.6-1.3); Glucose 100 mg/dL (74-106); Osmolality,Calculated 285 (275-295); Phosphorous 2.8 mg/dL (2.4-5.1); Potassium 5.2 mMol/L (3.4-5.1); Sodium 142 mMol/L (136-145); eGFR 49 See Note
[2024-11-05 15:01] LABS: Vitamin D 25 Hydroxy Total 64.9 ng/mL (7.3-40.2)
== END | disposition home or self-care (01) ==
LOC: COPL 13:56
PROVIDERS: PCP Family Medicine; Referring Provider Internal Medicine; Visit Provider Family Medicine
DX: E55.9 Vitamin D deficiency, unspecified (principal); N17.9 Acute kidney failure, unspecified; D64.9 Anemia, unspecified
CPT/HCPCS: 36415; 80069; 82306; 83735; 83970; 85025

== ENCOUNTER → 2024-12-20 | Outpatient (CLI) | payer OTHER, SELFPAY ==
[2024-12-20 14:20] LABS: Albumin, Serum 4.4 gm/dL (3.5-5.0); Anion Gap 9 (7-16); BUN/Creatinine Ratio 13 Ratio (12-20); Blood Urea Nitrogen 13 mg/dL (9-23); Calcium 11.1 mg/dL (8.3-10.6); Calcium (Corrected) 11.1 mg/dL (8.5-10.1); Carbon Dioxide 26.6 mMol/L (20.0-31.0); Chloride 108 mMol/L (98-107); Glucose 91 mg/dL (74-106); Magnesium 2.2 mg/dL (1.6-2.6); Osmolality,Calculated 286 (275-295); Phosphorous 2.7 mg/dL (2.4-5.1); Potassium 4.6 mMol/L (3.4-5.1); Sodium 144 mMol/L (136-145); eGFR > 60 See Note
[2024-12-20 14:22] LABS: Vitamin D 25 Hydroxy Total 56.4 ng/mL (7.3-40.2)
== END | disposition home or self-care (01) ==
LOC: COPL 12:57
PROVIDERS: PCP Family Medicine; Referring Provider Internal Medicine; Visit Provider Family Medicine
DX: I12.9 Hypertensive chronic kidney disease with stage 1 through stage 4 chronic kidney disease, or unspecified chronic kidney disease (principal); E11.22 Type 2 diabetes mellitus with diabetic chronic kidney disease; N18.31 Chronic kidney disease, stage 3a; E78.2 Mixed hyperlipidemia; N17.9 Acute kidney failure, unspecified
CPT/HCPCS: 36415; 80069; 82306; 83735